=== PATIENT | male | born 1945 | race Caucasian/White ===

== ENCOUNTER 2017-05-02 16:30 | Emergency (ER) | payer MEDICARE, BC ==
[2017-05-02] MEDS ORDERED: HYDROmorphone HCL 1 MG/ML DISP.SYRIN IM ONE (16:55)
[2017-05-02] MEDS ORDERED: KETOROLAC TROMETHAMINE 30 MG/ML VIAL IM ONE (16:56)
[2017-05-02] MEDS ORDERED: KETOROLAC TROMETHAMINE 30 MG/ML VIAL ONE (16:59)
[2017-05-02] MEDS ORDERED: HYDROmorphone HCL 2 MG/ML VIAL ONE (16:59)
[2017-05-02] MEDS ORDERED: ALBUTEROL SULFATE/IPRATROPIUM 3 ML NEBU IH ONE ×2 (17:00→17:07)
--- NOTE | 2017-05-02 17:01 | ERNOTE ---
Trauma/Assault HPI - Narrative Date of Service: 05/02/17 - General Stated Complaint: FALL, LOC Time Seen by Provider: 05/02/17 16:34 Source: patient, family - Immun/Allergies/Home Medications Immunizations: IMMUNIZATION HX Immunizations Up to Date Yes History of Influenza Vaccine Yes Hx Pneumococcal Vaccination Yes Allergies/Adverse Reactions: Allergies No Known Drug Allergies Allergy (Unverified 02/21/12 13:26) Home Medications: HOME MEDICATIONS Albuterol Sulfate [Proventil Hfa] 2 puff IH Q4H PRN 02/05/13 [Last Taken ] Albuterol Sulfate/Ipratropium [Duoneb 2.5-0.5MG/3ML Soln] 3 ml IH QID 02/05/13 [ Last Taken 06/01/14] Allopurinol [Zyloprim (Allopurinol)] 100 mg PO DAILY 02/05/13 [Last Taken ] Aspirin [Aspirin Enteric Coated] 81 mg PO DAILY 02/05/13 [Last Taken 05/30/14] Indomethacin [Indocin Generic] 25 mg PO DAILY 02/05/13 [Last Taken 05/31/14] Lisinopril [Zestril] 40 mg PO BID 02/05/13 [Last Taken 05/31/14] Metoprolol Succinate [Toprol Xl] 12.5 mg PO BID 02/05/13 [Last Taken 06/01/14] Polyethylene Glycol 3350 [Miralax] 17 gm PO DAILY PRN 02/05/13 [Last Taken Unknown] RX: Nitroglycerin 0.4 mg SL Q5MIN PRN 02/05/13 [Last Taken Unknown] RX: Omeprazole 20 mg PO DAILY 02/05/13 [Last Taken 05/31/14] RX: Simvastatin 10 mg PO HS 02/05/13 [Last Taken 05/31/14] Tamsulosin HCl [Flomax] 0.8 mg PO HS 02/05/13 [Last Taken 05/31/14] amLODIPine BESYLATE [Norvasc] 10 mg PO DAILY 02/05/13 [Last Taken 05/31/14] Finasteride [Proscar] 5 mg PO DAILY 05/19/14 [Last Taken 05/31/14] Wheat Dextrin [Benefiber] 1 tbs PO DAILY 02/10/15 [Last Taken Unknown] Acetaminophen with Codeine [Tylenol with Codeine #3 Tablet] 1 each PO Q6H PRN # 20 tab 05/02/17 [Last Taken Unknown] - History of Present Illness Narrative: Patient is a 72-year-old patient male who presents to the emergency room after sustaining a fall. Has a history of COPD and currently on 2 L of oxygen chronically. He reports a witnessed syncopal episode. Currently he was supposed to wear his oxygen all the time but he wasn't wearing at the time of the fall. While taking a shower he fell and hit the right lateral aspect of his chest area on the bathtub. Ring to the emergency room right now complaining of pain of the lateral aspect of the right chest. Location Occurred: Reports: home Pain Location: Reports: chest - right lateral chest area Method of Injury: Reports: fall Associated Symptoms - Trauma: Reports: shortness of breath. Denies: headache, confusion, dizziness, lightheadedness, seizures, slurred speech, trouble walking , vision changes, neck pain, chest pain, abdominal pain, nausea, vomiting, muscle spasms Review of Systems - Review of Systems Constitutional: Present: See HPI EYE: Present: see HPI ENT: Present: See HPI Respiratory: Present: shortness of breath - chronic , wheezing. Absent: cough, orthopnea, stridor Cardiology: Present: chest pain. Absent: palpitations, syncope, edema, claudication Gastrointestinal/Abdominal: Present: See HPI Musculoskeletal: Present: See HPI Skin: Present: See HPI Neurological: Present: See HPI - Patient's Past Medical History Patient History - Medical: Anxiety, Depression, GERD Patient History - Cardiac/Respiratory: Coronary Heart Disease, COPD Patient History - Cancer: Bladder Patient History - Surgical Procedures: Colonoscopy, Coronary Bypass Surgery, Other Patient History - Other: None - Social History Living Situations: spouse Abuse History: No History of abuse Psych History: Hx of Anxiety, Hx of Depression Smoking Status: Former smoker Alcohol Use: none Drug Use: none - Immunizations Immunizations Up to Date: Yes Hx Pneumococcal Vaccination: Yes History of Influenza Vaccine: Yes Physical Exam - Physical Exam General Appearance: Present: wd/wn, mild distress Head Exam: Present: normal inspection, no evidence of injury Eye Exam: Normal inspection: bilateral, PERRL: bilateral, EOMI: bilateral Ears, Nose, Throat: Present: normal ENT inspection, normal except - Neck: Present: normal inspection, nontender, supple, full range of motion Respiratory: Present: no respiratory distress, normal breath sounds, chest tenderness - he appears to be exquisitely tender on the right aspect of the lateral chest area., expiration (prolonged), wheezing Cardiovascular/Chest: Present: regular rate, rhythm, no murmur, normal peripheral pulses Gastrointestinal/Abdominal: Present: normal bowel sounds, nontender, nondistended, no organomegaly Extremity Exam: Present: normal inspection Neurological Exam: Present: alert, oriented, normal mood/affect, no motor/ sensory deficits Skin Exam: Present: normal color, warm/dry Lymphatic Exam: Present: no adenopathy ED Progress - Vital Signs Patient's Vital Signs:: I have reviewed the patient's vital signs. Vital Signs: Vital Signs 05/02/17 16:47 Temperature 36.7 C Pulse Rate 52 L Respiratory 13 Rate Blood Pressure 144/58 O2 Sat by Pulse 99 Oximetry - X-Ray X-Ray #1 X-Ray: right rib series Interpretation: Reviewed by me X-ray Comments: He appears to have a nondisplaced fracture of the anterior ninth rib with no evidence of complications. - Progress/Reassessment Chief Complaint: Fall Departure Clinical Impression: Closed rib fracture Qualifiers: Encounter type: initial encounter Rib fracture type: single rib Laterality: right Qualified Code(s): S22.31XA - Fracture of one rib, right side, initial encounter for closed fracture - Departure Disposition: Home self-care Condition: Stable Instructions: Rib Fracture, [id number] Print Language: Irish Additional Instructions: Patient encouraged to follow up with his primary care physician in 7-10 days. Referrals: Linnea Roque MD [Primary Care Provider] - Prescriptions: Acetaminophen with Codeine [Tylenol with Codeine #3 Tablet] 1 each PO Q6H PRN # 20 tab PRN Reason: Muscle Pain Critical Care Time - Critical Care Critical Time Spent:: No
[2017-05-02 18:25] VITALS: BP 123/65
== END 2017-05-02 18:25 | disposition home or self-care (01) ==
LOC: ER 16:30
DX: S22.31XA Fracture of one rib, right side, initial encounter for closed fracture (principal); W18.2XXA Fall in (into) shower or empty bathtub, initial encounter; Y93.E1 Activity, personal bathing and showering; Y92.002 Bathroom of unspecified non-institutional (private) residence as the place of occurrence of the external cause; Z87.891 Personal history of nicotine dependence; Z85.51 Personal history of malignant neoplasm of bladder

== ENCOUNTER 2018-08-13 16:16 | Inpatient (IN) ==
[2018-08-13] MEDS ORDERED: DILTIAZEM HCL 5 MG/ML VIAL IV ONE (16:39)
--- NOTE | 2018-08-13 16:43 | ERNOTE ---
Lower Extremity HPI - General Lower Extremities Pain: leg: bilateral, foot: bilateral - Edema Time Seen by Provider: 08/13/18 16:24 Source: patient Exam Limitations: no limitations - Immun/Allergies/Home Medications Immunizations: IMMUNIZATION HX Immunizations Up to Date Yes History of Influenza Vaccine Yes Hx Pneumococcal Vaccination Yes Allergies/Adverse Reactions: Allergies Allergy/AdvReac Type Severity Reaction Status Date / Time lisinopril Allergy Mild cough Verified 08/13/18 16:26 Home Medications: HOME MEDICATIONS Aspirin [Aspirin Enteric Coated] 81 mg PO DAILY 02/05/13 [Last Taken 05/30/14] Wheat Dextrin [Benefiber] 1 tbs PO DAILY 05/19/14 [Last Taken Unknown] acetaminophen 300 mg-codeine 30 mg tablet 1 tab PO Q6H PRN #20 tab 11/23/17 [Last Taken Unknown] allopurinol 100 mg tablet 100 mg PO DAILY #90 tab 11/23/17 [Last Taken Unknown] amlodipine 10 mg tablet 10 mg PO DAILY #90 tab 11/23/17 [Last Taken Unknown] atorvastatin 40 mg tablet 40 mg PO HS #90 tab 11/23/17 [Last Taken Unknown] finasteride 5 mg tablet 5 mg PO DAILY #90 tab 11/23/17 [Last Taken Unknown] nitroglycerin 0.4 mg sublingual tablet 0.4 mg SL Q5MIN PRN #25 tab 11/23/17 [Last Taken Unknown] omeprazole 20 mg tablet,delayed release 20 mg PO DAILY #90 tab 11/23/17 [Last Taken Unknown] polyethylene glycol 3350 17 gram/dose oral powder 17 g PO DAILY PRN #510 g 11/23/17 [Last Taken Unknown] losartan 100 mg tablet 100 mg PO DAILY #90 tab 06/18/18 [Last Taken Unknown] sertraline 100 mg tablet 100 mg PO DAILY #90 tab 06/18/18 [Last Taken Unknown] ipratropium-albuterol 0.5 mg-3 mg(2.5 mg base)/3 mL nebulization soln 3 ml IH QID #180 ml 06/25/18 [Last Taken Unknown] albuterol sulfate HFA 90 mcg/actuation aerosol inhaler 2 puff IH Q4H PRN #18 g 06/26/18 [Last Taken Unknown] PowerWheelchair See Dose Instructions .ROUTE .MEDSUPPLY #1 ea 07/17/18 [Last Taken Unknown] electric wheelchair 0 .ROUTE .MEDSUPPLY #1 ea 07/17/18 [Last Taken Unknown] tamsulosin 0.4 mg capsule 0.4 mg PO DAILY #30 cap 07/17/18 [Last Taken Unknown] - History of Present Illness Narrative: Patient presents with approximately 1 week of lower extremity edema and shortness of breath. He rates his symptoms as at least moderate in severity. Occurred: other - Over the past week Location of Incident: home Loss of Consciousness: Reports: no loss of consciousness Other Injuries: Reports: none Review of Systems - Review of Systems Constitutional: Present: See HPI EYE: Present: no symptoms reported ENT: Present: no symptoms reported Respiratory: Present: See HPI Cardiology: Present: See HPI Gastrointestinal/Abdominal: Present: no symptoms reported Genitourinary: Present: no symptoms reported Musculoskeletal: Present: no symptoms reported Skin: Present: no symptoms reported Neurological: Present: no symptoms reported Endocrine: Present: no symptoms reported Hematologic/Lymphatic: Present: no symptoms reported Psych: Present: no symptoms reported Medical History (Updated 08/13/18 @ 16:44 by William Quick DO) Prostatism (Chronic) Chronic pain (Chronic) Anemia (Chronic) Hyperlipidemia (Chronic) Hypertension (Chronic) COPD with asthma (Chronic) Anxiety and depression B12 deficiency Bladder neoplasm Onset Date: ~2011 BPH with obstruction 2001, chronis prostatitis COPD (chronic obstructive pulmonary disease) Onset Date: 1995 [place], followed by CABG x1, VALDERRAMA to LAD Chronic GERD Onset Date: 1994 Hiatal Hernia Coronary artery disease Onset Date: Unknown Diverticulosis Onset Date: Unknown Hyperlipidemia due to dietary fat intake Onset Date: 1995 Hypertension Onset Date: 1975 Surgical History: Surgical History (Updated 11/05/17 @ 12:39 by Giovana Worley CMA) History of biopsy of bladder Onset Date: 08/02/11 Hx of colonoscopy 2000 Diverticulosis of sigmoid, hyperplastic polyps, 06/01/2014 - moderate to severe sigmoid diverticulosis. Recheck in 10 years Hx of coronary artery bypass graft Onset Date: 1995 CABG x1; VALDERRAMA to the LAD Hx of cystoscopy 11/17/2011 Faith, 08/02/2011 Lisa, 06/29/2012 Faith, 11/29/2012 Faith, 02/07/2013 Faith, 01/16/2017 Faith Family History: Family History (Last Reviewed 07/16/18 @ 15:15 by Rocio Shane LPN) Brother , (3) 2 in there 60s from [place], 1 had lung CA No problems noted. Father , at age 70, kidney CA No problems noted. Mother , at age 57 from CVA No problems noted. Sister , in 70s with breathing problems, 1 A&W, 2 heart issues No problems noted. Social History: Preferred Language Nepalese Smoking Status Former smoker Have you smoked in the past 12 No months Abuse History No History of abuse Psych History Hx of Anxiety,Hx of Depression Alcohol Use none Drug Use none (Last Updated 07/17/18 @ 08:56 by Krystian Galvan DO) No Social History Section defined Physical Exam - Physical Exam General Appearance: Present: wd/wn, alert, mild distress Head Exam: Present: normal inspection, no evidence of injury Eye Exam: Normal inspection: bilateral, PERRL: bilateral Ears, Nose, Throat: Present: normal ENT inspection, H, normal pharynx Neck: Present: normal inspection, nontender Respiratory: Present: no accessory muscle use, chest nontender, decreased breath sounds, other - Crackles in the bases right greater than left Cardiovascular/Chest: Present: no murmur, normal peripheral pulses, tachycardia, irregularly irregular Gastrointestinal/Abdominal: Present: normal bowel sounds, nontender, nondistended, soft, no organomegaly Rectal Exam: Present: deferred Back Exam: Present: normal inspection, normal range of motion Extremity Exam: Present: normal inspection, non-tender, normal range of motion, extremity edema - Bilateral Neurological Exam: Present: alert, oriented, normal mood/affect Skin Exam: Present: normal color, warm/dry Lymphatic Exam: Present: no adenopathy Progress - Results and Orders Patient's Lab Results:: I have reviewed the patient's lab results. - Vital Signs Patient's Vital Signs:: I have reviewed the patient's vital signs. Vital Signs: Vital Signs 08/13/18 16:23 Pulse Rate 132 H Respiratory Rate 20 Blood Pressure 135/88 O2 Sat by Pulse Oximetry 98 - EKG EKG #1 EKG: atrial fibrillation EKG read: Reviewed by me - X-Ray X-Ray #1 X-Ray: chest Interpretation: Reviewed by me - Progress/Reassessment Chief Complaint: Lower Extremity Pain/ Injury Plan - Plan Plan: Patient be admitted to the ICU on a Cardizem drip. We have given Lovenox subcu and we have also started Coumadin 10 mg orally. Departure Clinical Impression: Atrial fibrillation with rapid ventricular response CHF (congestive heart failure) Qualifiers: Heart failure type: unspecified Heart failure chronicity: acute Qualified Code(s): I50.9 - Heart failure, unspecified COPD (chronic obstructive pulmonary disease) Qualifiers: COPD type: unspecified COPD Qualified Code(s): J44.9 - Chronic obstructive pulmonary disease, unspecified - Departure Disposition: Still a patient Condition: Critical Referrals: Krystian Galvan DO [Primary Care Provider] - Critical Care Note - Critical Care Note Total Time (mins): 45 Comments: Patient be admitted to the ICU we had to give Cardizem both as a bolus and as a drip here in the emergency department. As he was in CHF we also gave 80 mg of Lasix IV push.
[2018-08-13 16:47] LABS: Hematocrit 32.8 % (42.0-52.0); Mean Cell Volume 92.1 fl (78-100); Mean Corpuscular Hemoglobin 28.1 pg (27-31); Mean Corpuscular Hgb Conc 30.5 g/dl (32-36); Mean Platelet Volume 9.8 fl (8-11.3); Neutrophil # 5.5 K/mm3 (1.3-6.0); Neutrophil % 69.7 % (42-75.0); Platelet Count 278 K/mm3 (150-450); Red Blood Count 3.56 M/mm3 (4.7-6.0); Red Cell Distribution Width 15.2 % (11.5-14.0); White Blood Count 7.9 K/mm3 (4.0-10.5)
[2018-08-13 16:58] LABS: INR 1.17 INR (0.92-1.08); Partial Thrombolplastin Time 28.9 Seconds (24-32); Prothrombin Time (Patient) 11.5 Seconds (9.1-10.7)
[2018-08-13 17:07] LABS: Albumin * 2.8 gm/dl (3.4-5.0); Anion Gap 11.1 mmol/L (6.8-13.8); BUN/Creatinine Ratio 11.5 (9.0-21.6); Bilirubin, Total 0.5 mg/dL (0.0-1.1); Ca. Corrected For Albumin 9.8 mg/dL (8.4-10.2); Calcium * 9.2 mg/dL (7.9-10.9); Carbon Dioxide 28.8 mmol/L (24-32.6); Magnesium 2.1 mg/dL (1.2-2.8); Potassium 3.9 mmol/L (3.4-4.6); Total Protein 6.8 gm/dL (6.2-8.2); Troponin I 0.031 ng/mL (0.00-0.10)
[2018-08-13] MEDS ORDERED: ENOXAPARIN SODIUM 100 MG/ML SYRG SC ONE (17:30)
[2018-08-13] MEDS ORDERED: NORMAL SALINE 1,000 ML IV ONE (17:32)
[2018-08-13] MEDS ORDERED: FUROSEMIDE 10 MG/ML VIAL IV ONE (17:32)
[2018-08-13] MEDS: DILTIAZEM HCL 125 MG in DEXTROSE 5 % IN WATER 100 ML IV PRN ×2 (17:33)
[2018-08-13] MEDS ORDERED: WARFARIN SODIUM 10 MG TABLET PO ONE (18:00)
--- NOTE | 2018-08-13 18:46 | HP ---
Chief Complaint - Chief Complaint Date of Service: 08/13/18 Time of Service: 18:10 Chief Complaint: Bilateral lower extremity edema History of Present Illness: 73-year-old male with a past medical history of anxiety and depression, anemia, COPD on home oxygen (3 L), CAD, hyperlipidemia, hypertension, GERD, bladder neoplasm, BPH, and chronic pain presents with complaints of bilateral lower extremity edema. He states that his symptoms began about 5 days ago. He states he does not typically have swelling in his legs. Symptoms were associated with worsening of his baseline shortness of breath. He presented to the emergency department and was found to have new onset atrial fib with RVR. He was started on a Cardizem drip. He was given a dose of Lovenox in the ER. Medical History (Updated 08/14/18 @ 10:45 by Lelo Cerrato MD) Prostatism (Chronic) Chronic pain (Chronic) Anemia (Chronic) Hyperlipidemia (Chronic) Hypertension (Chronic) COPD with asthma (Chronic) Anxiety and depression B12 deficiency Bladder neoplasm Onset Date: ~2011 BPH with obstruction 2001, chronis prostatitis COPD (chronic obstructive pulmonary disease) Onset Date: 1995 [place], followed by CABG x1, VALDERRAMA to LAD Chronic GERD Onset Date: 1994 Hiatal Hernia Coronary artery disease Onset Date: Unknown Diverticulosis Onset Date: Unknown Hyperlipidemia due to dietary fat intake Onset Date: 1995 Hypertension Onset Date: 1975 Surgical History: Surgical History (Updated 08/13/18 @ 18:46 by Lelo Cerrato MD) History of biopsy of bladder Onset Date: 08/02/11 Hx of colonoscopy 2000 Diverticulosis of sigmoid, hyperplastic polyps, 06/01/2014 - moderate to severe sigmoid diverticulosis. Recheck in 10 years Hx of coronary artery bypass graft Onset Date: 1995 CABG x1; VALDERRAMA to the LAD Hx of cystoscopy 11/17/2011 Faith, 08/02/2011 Lisa, 06/29/2012 Faith, 11/29/2012 Faith, 02/07/2013 Faith, 01/16/2017 Faith Family History: Family History (Last Reviewed 07/16/18 @ 15:15 by Rocio Shane LPN) Brother , (3) 2 in there 60s from [place], 1 had lung CA No problems noted. Father , at age 70, kidney CA No problems noted. Mother , at age 57 from CVA No problems noted. Sister , in 70s with breathing problems, 1 A&W, 2 heart issues No problems noted. Social History: Preferred Language Maltese Smoking Status Former smoker Have you smoked in the past 12 No months Abuse History No History of abuse Psych History Hx of Anxiety,Hx of Depression Alcohol Use none Drug Use none (Last Updated 07/17/18 @ 08:56 by Krystian Galvan DO) No Social History Section defined Review Of Systems (GEN) - Review of Systems Generalized/Overall Review: Absent: Fever EENTM: Absent: Ear Pain Respiratory: Present: Shortness of Breath Cardiac: Present: Edema. Absent: Chest Pain, Palpitations Abdominal: Absent: Abdominal Pain Genitourinary: Present: Frequency Misc: All systems neg except as marked Immunizations: IMMUNIZATION HX Immunizations Up to Date Yes History of Influenza Vaccine Yes Hx Pneumococcal Vaccination Yes Allergies/Adverse Reactions: Allergies Allergy/AdvReac Type Severity Reaction Status Date / Time lisinopril Allergy Mild cough Verified 08/13/18 16:26 Home Medications: HOME MEDICATIONS Aspirin [Aspirin Enteric Coated] 81 mg PO DAILY 02/05/13 [Last Taken 05/30/14] allopurinol 100 mg tablet 100 mg PO DAILY #90 tab 11/23/17 [Last Taken Unknown] amlodipine 10 mg tablet 10 mg PO DAILY #90 tab 11/23/17 [Last Taken Unknown] atorvastatin 40 mg tablet 40 mg PO HS #90 tab 11/23/17 [Last Taken Unknown] finasteride 5 mg tablet 5 mg PO DAILY #90 tab 11/23/17 [Last Taken Unknown] nitroglycerin 0.4 mg sublingual tablet 0.4 mg SL Q5MIN PRN #25 tab 11/23/17 [Last Taken Unknown] omeprazole 20 mg tablet,delayed release 20 mg PO DAILY #90 tab 11/23/17 [Last Taken Unknown] polyethylene glycol 3350 17 gram/dose oral powder 17 g PO DAILY PRN #510 g 11/23/17 [Last Taken Unknown] losartan 100 mg tablet 100 mg PO DAILY #90 tab 06/18/18 [Last Taken Unknown] sertraline 100 mg tablet 100 mg PO DAILY #90 tab 06/18/18 [Last Taken Unknown] ipratropium-albuterol 0.5 mg-3 mg(2.5 mg base)/3 mL nebulization soln 3 ml IH QID #180 ml 06/25/18 [Last Taken Unknown] albuterol sulfate HFA 90 mcg/actuation aerosol inhaler 2 puff IH Q4H PRN #18 g 06/26/18 [Last Taken Unknown] PowerWheelchair See Dose Instructions .ROUTE .MEDSUPPLY #1 ea 07/17/18 [Last Taken Unknown] electric wheelchair 0 .ROUTE .MEDSUPPLY #1 ea 07/17/18 [Last Taken Unknown] tamsulosin 0.4 mg capsule 0.4 mg PO DAILY #30 cap 07/17/18 [Last Taken Unknown] Cholecalciferol (Vitamin D3) [Vitamin D] 2,000 unit PO DAILY 08/13/18 [Last Taken Unknown] Cyanocobalamin (Vitamin B-12) [Vitamin B12] 2,500 mcg PO DAILY 08/13/18 [Last Taken Unknown] Exam - Exam Vital Signs: Vital Signs - Last Taken Pulse 138 H 08/13/18 18:36 Resp 28 H 08/13/18 18:36 BP 127/71 08/13/18 18:36 Pulse Ox 96 08/13/18 18:16 Constitutional: Present: Alert, Cooperative, Well developed, Well nourished, No distress ENT Exam: Present: hearing grossly normal Eye Exam: bilateral eye: normal inspection, PERRL Neck: Present: non-tender, supple, trachea midline. Absent: lymphadenopathy (R), lymphadenopathy (L) Back Exam: Present: normal inspection, no CVA tenderness, no vertebral tenderness Respiratory: Present: no respiratory distress, no accessory muscle use - Expiratory, wheezing. Absent: crackles, rhonchi Cardiovascular/Chest: Present: normal peripheral pulses, no chest tenderness, no edema, no murmur, irregularly irregular Peripheral Pulses: dorsalis-pedis (R): 1+, dorsalis-pedis (L): 1+ Abdomen: Present: Normal bowel sounds, soft, nontender Extremity: Present: pedal edema - 2+ pitting Skin Exam: Present: normal color, warm/dry Neurologic: Present: alert, normal mood/affect Appearance: Present: appropriate appearance, appropriate insight Eye contact: Present: cooperative Thoughts: Present: normal thought pattern, normal mood /affect Diagnostic Studies: Abnormal Lab Results 08/13/18 08/13/18 08/13/18 Range/Units 16:41 16:41 16:41 RBC 3.56 L (4.7-6.0) M/mm3 Hgb 10.0 L (13.5-18.0) gm/dL Hct 32.8 L (42.0-52.0) % MCHC 30.5 L (32-36) g/dl RDW 15.2 H (11.5-14.0) % Lymphocytes % 16.1 L (20-51) % Monocytes % 9.6 H (0.0-9) % Eosinophils % 3.5 H (0.0-3.0) % Lymphocytes # 1.27 L (1.5-3.5) k/mm3 PT 11.5 H (9.1-10.7) Seconds INR (Anticoag Therapy) 1.17 H (0.92-1.08) INR Est GFR (Non-Af Amer) 57 L (60-130) mL/min Random Glucose 118 H (70-110) mg/dL ALT 16 L (19-67) U/L B-Natriuretic Peptide 3159 H (5-350) pg/mL Albumin 2.8 L (3.4-5.0) gm/dl Laboratory Results WBC 7.9 K/mm3 (4.0-10.5) 08/13/18 16:41 RBC 3.56 M/mm3 (4.7-6.0) L 08/13/18 16:41 Hgb 10.0 gm/dL (13.5-18.0) L 08/13/18 16:41 Hct 32.8 % (42.0-52.0) L 08/13/18 16:41 MCV 92.1 fl (78-100) 08/13/18 16:41 MCH 28.1 pg (27-31) 08/13/18 16:41 MCHC 30.5 g/dl (32-36) L 08/13/18 16:41 RDW 15.2 % (11.5-14.0) H 08/13/18 16:41 Plt Count 278 K/mm3 (150-450) 08/13/18 16:41 MPV 9.8 fl (8-11.3) 08/13/18 16:41 Immature Gran % (Auto) 0.30 % (0.001-0.429) 08/13/18 16:41 Immature Gran # (Auto) 0.02 K/mm3 (0.000-0.0310) 08/13/18 16:41 69.7 % (42-75.0) 08/13/18 16:41 16.1 % (20-51) L 08/13/18 16:41 9.6 % (0.0-9) H 08/13/18 16:41 3.5 % (0.0-3.0) H 08/13/18 16:41 0.8 % (0.0-1.0) 08/13/18 16:41 Nucleated RBC % 0.0 k/mm3 (0-1) 08/13/18 16:41 5.5 K/mm3 (1.3-6.0) 08/13/18 16:41 1.27 k/mm3 (1.5-3.5) L 08/13/18 16:41 0.8 k/mm3 (0.0-1.0) 08/13/18 16:41 0.3 k/mm3 (0.0-0.7) 08/13/18 16:41 Absolute Basophils 0.1 k/mm3 (0.0-0.1) 08/13/18 16:41 PT 11.5 Seconds (9.1-10.7) H 08/13/18 16:41 INR (Anticoag Therapy) 1.17 INR (0.92-1.08) H 08/13/18 16:41 PTT (Pedro Luis) 28.9 Seconds (24-32) 08/13/18 16:41 Sodium 138 mmol/L (132-142) 08/13/18 16:41 138 mmol/L (130-142) 08/13/18 16:41 Potassium 3.9 mmol/L (3.4-4.6) 08/13/18 16:41 Chloride 102 mmol/L (97-106) 08/13/18 16:41 Carbon Dioxide 28.8 mmol/L (24-32.6) 08/13/18 16:41 11.1 mmol/L (6.8-13.8) 08/13/18 16:41 BUN 15 mg/dL (6-23) 08/13/18 16:41 1.30 mg/dL (0.4-1.4) 08/13/18 16:41 Est GFR (Non-Af Amer) 57 mL/min (60-130) L 08/13/18 16:41 11.5 (9.0-21.6) 08/13/18 16:41 118 mg/dL (70-110) H 08/13/18 16:41 Calcium 9.2 mg/dL (7.9-10.9) 08/13/18 16:41 Calcium Adj for Albumin 9.8 mg/dL (8.4-10.2) 08/13/18 16:41 Magnesium 2.1 mg/dL (1.2-2.8) 08/13/18 16:41 0.5 mg/dL (0.0-1.1) 08/13/18 16:41 AST 17 U/L (0-48) 08/13/18 16:41 ALT 16 U/L (19-67) L 08/13/18 16:41 131 U/L (50-170) 08/13/18 16:41 0.031 ng/mL (0.00-0.10) 08/13/18 16:41 B-Natriuretic Peptide 3159 pg/mL (5-350) H 08/13/18 16:41 6.8 gm/dL (6.2-8.2) 08/13/18 16:41 2.8 gm/dl (3.4-5.0) L 08/13/18 16:41 Assessment/Plan - Narrative Narrative: 73-year-old male with a past medical history of anxiety and depression, anemia, COPD on home oxygen (3 L), CAD, hyperlipidemia, hypertension, GERD, bladder neoplasm, BPH, and chronic pain presents with complaints of bilateral lower extremity edema. He states that his symptoms began about 5 days ago. He states he does not typically have swelling in his legs. Symptoms were associated with worsening of his baseline shortness of breath. He presented to the emergency department and was found to have new onset atrial fib with RVR. He was started on a Cardizem drip. Is was given a dose of Lovenox in the ER. He will be admitted to the SCU for rate control. - Assessment/Plan (1) Atrial fibrillation with rapid ventricular response Problem: Acute (2) CHF (congestive heart failure) Problem: Suspected Qualifiers: Heart failure type: unspecified Heart failure chronicity: acute Qualified Code(s): I50.9 - Heart failure, unspecified (3) COPD (chronic obstructive pulmonary disease) Problem: Chronic Qualifiers: COPD type: unspecified COPD Qualified Code(s): J44.9 - Chronic obstructive pulmonary disease, unspecified (4) Hypertension Problem: Chronic Qualifiers: Hypertension type: essential hypertension Qualified Code(s): I10 - Essential (primary) hypertension
[2018-08-13] MEDS ORDERED: POLYETHYLENE GLYCOL 3350 119 GM BTL PO PRN (18:49)
[2018-08-13] MEDS ORDERED: NITROGLYCERIN 0.4 MG/TAB BTL SL PRN (18:49)
[2018-08-13] MEDS ORDERED: ALBUTEROL SULFATE 200 PUFF INHALER IH PRN (18:49)
[2018-08-13] MEDS: ALBUTEROL SULFATE/IPRATROPIUM 3 ML NEBU IH SCH (21:07)
[2018-08-13] MEDS: ROSUVASTATIN CALCIUM 20 MG TABLET PO SCH (21:07)
[2018-08-14] MEDS: DILTIAZEM HCL 125 MG in DEXTROSE 5 % IN WATER 100 ML IV PRN ×4 (02:31→09:30)
[2018-08-14] MEDS: ALBUTEROL SULFATE/IPRATROPIUM 3 ML NEBU IH SCH ×4 (06:32→19:37)
[2018-08-14] MEDS: PANTOPRAZOLE SODIUM 20 MG TABLET.DR PO SCH (06:59)
[2018-08-14] MEDS ORDERED: TAMSULOSIN HCL 0.4 MG CAP.SR.24H PO SCH (09:00)
[2018-08-14] MEDS ORDERED: amLODIPine BESYLATE 10 MG TABLET PO SCH (09:00)
[2018-08-14] MEDS ORDERED: FUROSEMIDE 10 MG/ML VIAL IV ONE (09:06)
[2018-08-14] MEDS: ALLOPURINOL 100 MG TABLET PO SCH (09:24)
[2018-08-14] MEDS: ASPIRIN 81 MG TABLET.DR PO SCH (09:24)
[2018-08-14] MEDS: SERTRALINE HCL 100 MG TABLET PO SCH (09:25)
[2018-08-14] MEDS: LOSARTAN POTASSIUM 50 MG TABLET PO SCH (09:25)
[2018-08-14] MEDS: FINASTERIDE 5 MG TABLET PO SCH (09:25)
[2018-08-14 09:38] LABS: Anion Gap 11.7 mmol/L (6.8-13.8); BUN/Creatinine Ratio 11.5 (9.0-21.6); Calcium * 8.8 mg/dL (7.9-10.9); Carbon Dioxide 30.2 mmol/L (24-32.6); Estimated Creat Clear 42.9; Potassium 3.9 mmol/L (3.4-4.6)
--- NOTE | 2018-08-14 10:45 | PN ---
Subjective - Date and Time Seen Date: 08/14/18 Time: 10:00 Subjective Narrative: He continues to complain of shortness of breath but states this is near his baseline. He states that overall he does feel better. He denies palpitations, chest pain or abdominal pain. Objective - Review of Systems Generalized/Overall Review: Denies: Chills, Fever EENTM: Denies: Eye Pain, Ear Pain Respiratory: Reports: Shortness of Breath Cardiac: Denies: Chest Pain Abdominal: Denies: Abdominal Pain Genitourinary Symptoms: Reports: Frequency Misc: All systems neg except as marked - Vitals Vitals: Last Vital Signs Temp 36.7 C 08/14/18 10:00 Pulse 130 H 08/14/18 10:12 Resp 28 H 08/14/18 10:12 BP 106/89 08/14/18 10:00 Pulse Ox 98 08/14/18 10:12 - Abnormal Lab Findings Abnormal Lab Findings: Abnormal Lab Results 08/13/18 08/13/18 08/13/18 Range/Units 16:41 16:41 16:41 RBC 3.56 L (4.7-6.0) M/mm3 Hgb 10.0 L (13.5-18.0) gm/dL Hct 32.8 L (42.0-52.0) % MCHC 30.5 L (32-36) g/dl RDW 15.2 H (11.5-14.0) % Lymphocytes % 16.1 L (20-51) % Monocytes % 9.6 H (0.0-9) % Eosinophils % 3.5 H (0.0-3.0) % Lymphocytes # 1.27 L (1.5-3.5) k/mm3 PT 11.5 H (9.1-10.7) Seconds INR (Anticoag Therapy) 1.17 H (0.92-1.08) INR Creatinine (0.4-1.4) mg/dL Est GFR (Non-Af Amer) 57 L (60-130) mL/min Random Glucose 118 H (70-110) mg/dL ALT 16 L (19-67) U/L B-Natriuretic Peptide 3159 H (5-350) pg/mL Albumin 2.8 L (3.4-5.0) gm/dl 08/14/18 Range/Units 09:20 RBC (4.7-6.0) M/mm3 Hgb (13.5-18.0) gm/dL Hct (42.0-52.0) % MCHC (32-36) g/dl RDW (11.5-14.0) % Lymphocytes % (20-51) % Monocytes % (0.0-9) % Eosinophils % (0.0-3.0) % Lymphocytes # (1.5-3.5) k/mm3 PT (9.1-10.7) Seconds INR (Anticoag Therapy) (0.92-1.08) INR Creatinine 1.56 H (0.4-1.4) mg/dL Est GFR (Non-Af Amer) 46 L (60-130) mL/min Random Glucose 126 H (70-110) mg/dL ALT (19-67) U/L B-Natriuretic Peptide (5-350) pg/mL Albumin (3.4-5.0) gm/dl - Exam Constitutional: Present: Alert, Cooperative, Well developed, Well nourished, No distress ENT Exam: Present: hearing grossly normal Neck: Present: non-tender, supple, trachea midline Respiratory: Present: wheezing - Expiratory bilateral Cardiovascular/Chest: Present: normal peripheral pulses, no murmur, tachycardia, irregularly irregular Abdomen: Present: Normal bowel sounds, soft, nontender Extremity: Present: pedal edema - 2+ bilateral Skin Exam: Present: normal color, warm/dry Neurologic: Present: normal mood/affect Appearance: Present: appropriate appearance, appropriate insight Eye contact: Present: cooperative Thoughts: Present: normal mood /affect Assessment/Plan Plan Narrative: 73-year-old male with a past medical history of anxiety and depression, anemia, COPD on home oxygen (3 L), CAD, hyperlipidemia, hypertension, GERD, bladder neoplasm, BPH, and chronic pain presents with complaints of bilateral lower extremity edema. He states that his symptoms began about 5 days ago. He states he does not typically have swelling in his legs. Symptoms were associated with worsening of his baseline shortness of breath. He presented to the emergency department and was found to have new onset atrial fib with RVR. He was started on a Cardizem drip. He was given a dose of Lovenox in the ER. - Problems/Diagnosis (1) Atrial fibrillation with rapid ventricular response Problem: Acute Narrative: Rate has improved to 110-120s. She has been on Cardizem 15 mg/h for the past 12 hours. This translates to 360 mg of Cardizem and a 24-hour time frame I will start him on 240 mg of oral Cardizem in an attempt to get him off of the drip. If his heart rate stabilizes off the drip I will transition him out of ICU to the floor and continue observation for 1 more day. Continue anticoagulation with warfarin 5 mg daily with an INR in the morning. (2) CHF (congestive heart failure) Problem: Suspected Qualifiers: Heart failure type: unspecified Heart failure chronicity: acute Qualified Code(s): I50.9 - Heart failure, unspecified Narrative: Likely secondary to the tachycardia. Continue with Lasix 20 mg daily. (3) COPD (chronic obstructive pulmonary disease) Problem: Chronic Qualifiers: COPD type: unspecified COPD Qualified Code(s): J44.9 - Chronic obstructive pulmonary disease, unspecified Narrative: Continue with duo nebs and albuterol. (4) Hypertension Problem: Chronic Qualifiers: Hypertension type: essential hypertension Qualified Code(s): I10 - Essential (primary) hypertension Narrative: Stable on diltiazem and home meds. (5) Bilateral lower extremity edema Problem: Acute Narrative: Continue with Lasix 20 mg daily.
[2018-08-14] MEDS: DILTIAZEM HCL 240 MG CAP.SR.24H PO SCH (10:48)
[2018-08-14] MEDS: ALBUTEROL SULFATE 2.5 MG/0.5 ML VIAL.NEB IH PRN (14:17)
[2018-08-14] MEDS: WARFARIN SODIUM 5 MG TABLET PO SCH (17:13)
[2018-08-14] MEDS: TAMSULOSIN HCL 0.4 MG CAP.SR.24H PO SCH (17:13)
[2018-08-14] MEDS: ROSUVASTATIN CALCIUM 20 MG TABLET PO SCH (20:23)
[2018-08-15] MEDS: ALBUTEROL SULFATE 2.5 MG/0.5 ML VIAL.NEB IH PRN (01:23)
[2018-08-15 05:56] LABS: Hemoglobin 8.8 gm/dL (13.5-18.0); Mean Cell Volume 90.9 fl (78-100); Mean Corpuscular Hemoglobin 27.6 pg (27-31); Mean Corpuscular Hgb Conc 30.3 g/dl (32-36); Mean Platelet Volume 10.4 fl (8-11.3); Neutrophil # 6.8 K/mm3 (1.3-6.0); Neutrophil % 75.9 % (42-75.0); Platelet Count 250 K/mm3 (150-450); Red Blood Count 3.19 M/mm3 (4.7-6.0); Red Cell Distribution Width 15.2 % (11.5-14.0); White Blood Count 8.9 K/mm3 (4.0-10.5)
[2018-08-15 06:04] LABS: Prothrombin Time (Patient) 17.1 Seconds (9.1-10.7)
[2018-08-15 06:14] LABS: Albumin * 2.6 gm/dl (3.4-5.0); Anion Gap 11.5 mmol/L (6.8-13.8); Bilirubin, Total 0.4 mg/dL (0.0-1.1); Ca. Corrected For Albumin 9.6 mg/dL (8.4-10.2); Calcium * 8.8 mg/dL (7.9-10.9); Carbon Dioxide 28.3 mmol/L (24-32.6); Potassium 3.8 mmol/L (3.4-4.6); Total Protein 6.1 gm/dL (6.2-8.2)
[2018-08-15 06:23] LABS: INR 1.77 INR (0.92-1.08)
[2018-08-15] MEDS: ALBUTEROL SULFATE/IPRATROPIUM 3 ML NEBU IH SCH ×4 (06:31→18:22)
[2018-08-15] MEDS: PANTOPRAZOLE SODIUM 20 MG TABLET.DR PO SCH (07:40)
[2018-08-15] MEDS ORDERED: amLODIPine BESYLATE 10 MG TABLET PO SCH (09:00)
[2018-08-15] MEDS: amLODIPine BESYLATE 5 MG TABLET PO SCH (09:55)
[2018-08-15] MEDS: SERTRALINE HCL 100 MG TABLET PO SCH (09:55)
[2018-08-15] MEDS: FINASTERIDE 5 MG TABLET PO SCH (09:56)
[2018-08-15] MEDS: predniSONE 20 MG TABLET PO SCH ×2 (09:56→21:32)
[2018-08-15] MEDS: ALLOPURINOL 100 MG TABLET PO SCH (09:56)
[2018-08-15] MEDS: DILTIAZEM HCL 240 MG CAP.SR.24H PO SCH (09:56)
[2018-08-15] MEDS: LOSARTAN POTASSIUM 50 MG TABLET PO SCH (09:56)
[2018-08-15] MEDS: ASPIRIN 81 MG TABLET.DR PO SCH (09:58)
[2018-08-15] MEDS: FLUTICASONE PROPION/SALMETEROL 14 PUFF DISK.W.DEV IH SCH ×2 (10:00→21:32)
[2018-08-15] MEDS: FUROSEMIDE 10 MG/ML VIAL IV SCH (10:23)
[2018-08-15] MEDS: WARFARIN SODIUM 5 MG TABLET PO SCH (17:30)
[2018-08-15] MEDS: TAMSULOSIN HCL 0.4 MG CAP.SR.24H PO SCH (17:30)
--- NOTE | 2018-08-15 20:45 | PN ---
Subjective - Date and Time Seen Date: 08/15/18 Time: 08:00 Subjective Narrative: On service note Salvador Arreola is a 73-year-old male admitted with shortness of breath, marked edema, and chest tightness. He has been diuresed yesterday and his swelling is diminished some but he still has a lot of leg edema. He was in atrial fibrillation with RVR on admission to the ER. Objective - Review of Systems Generalized/Overall Review: Reports: Weakness, Fatigue EENTM: Reports: No Symptoms Reported Respiratory: Reports: Cough, Shortness of Breath, Orthopnea, Wheezing Cardiac: Reports: No Symptoms Reported Abdominal: Reports: No Symptoms Reported Genitourinary Symptoms: Reports: No Symptoms Reported Musculoskeletal Complaints: Reports: Joint Pain Neurological: Reports: No Symptoms Reported, Tremors, Weakness Skin: Reports: No Symptoms Reported Endocrine: Reports: No Symptoms Reported Misc: All systems neg except as marked - Vitals Vitals: Last Vital Signs Temp 36.7 C 08/15/18 19:31 Pulse 67 08/15/18 19:31 Resp 24 H 08/15/18 19:31 BP 119/48 08/15/18 19:31 Pulse Ox 95 08/15/18 19:31 - Abnormal Lab Findings Abnormal Lab Findings: Abnormal Lab Results 08/15/18 08/15/18 08/15/18 Range/Units 05:53 05:53 05:53 RBC 3.19 L (4.7-6.0) M/mm3 Hgb 8.8 L (13.5-18.0) gm/dL Hct 29.0 L (42.0-52.0) % MCHC 30.3 L (32-36) g/dl RDW 15.2 H (11.5-14.0) % Immature Gran # (Auto) 0.04 H (0.000-0.0310) K/mm3 Neutrophils % 75.9 H (42-75.0) % Lymphocytes % 10.3 L (20-51) % Monocytes % 10.1 H (0.0-9) % Neutrophils # 6.8 H (1.3-6.0) K/mm3 Lymphocytes # 0.92 L (1.5-3.5) k/mm3 PT 17.1 H (9.1-10.7) Seconds INR (Anticoag Therapy) 1.77 H (0.92-1.08) INR Creatinine 1.54 H (0.4-1.4) mg/dL Est GFR (Non-Af Amer) 47 L (60-130) mL/min Random Glucose 123 H (70-110) mg/dL ALT 14 L (19-67) U/L Total Protein 6.1 L (6.2-8.2) gm/dL Albumin 2.6 L (3.4-5.0) gm/dl - EKG/Xray Findings EKG: supravent. tachycardia, atrial fibrillation XRAY: chest Interpretation: Reviewed by me - Exam Constitutional: Present: Alert, Oriented x3, Cooperative, Well developed, Well nourished, Mild distress ENT Exam: Present: normal ENT inspection, hearing grossly normal, pharynx jerad l, TMs normal Neck: Present: non-tender, full range of motion, supple, normal inspection, trachea midline, limited range of motion, lymphadenopathy (R) Breasts: Present: Exam deferred Respiratory: Present: accessory muscle use, rhonchi, wheezing, expiration (prolonged) Cardiovascular/Chest: Present: normal peripheral pulses, regular rate, rhythm - He has converted to normal sinus rhythm through last night on IV Cardizem., no chest tenderness, no edema, no gallop, no JVD, no murmur, no rub Abdomen: Present: Normal bowel sounds, soft, nontender, nondistended, no rebound tenderness, no hepatospenomegaly, no masses /Rectal: Present: Exam deferred Extremity: Present: normal range of motion, non-tender, normal inspection, no pedal edema, no calf tenderness, normal capillary refill Skin Exam: Present: normal color, warm/dry, no cyanosis Lymphatic: Present: no adenopathy Neurologic: Present: 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 Continue diuresis 2. Progress activity as allowed 3. Probable discharge tomorrow morning 4. Repeat lab in the morning - Problems/Diagnosis (1) Atrial fibrillation with rapid ventricular response Problem: Acute (2) CHF (congestive heart failure) Problem: Acute Qualifiers: Heart failure type: combined systolic and diastolic Heart failure chronicity: acute Qualified Code(s): I50.41 - Acute combined systolic (congestive) and diastolic (congestive) heart failure (3) COPD (chronic obstructive pulmonary disease) Problem: Chronic Qualifiers: COPD type: unspecified COPD Qualified Code(s): J44.9 - Chronic obstructive pulmonary disease, unspecified (4) Bilateral lower extremity edema Problem: Acute (5) Anemia Problem: Chronic Qualifiers: Anemia type: iron deficiency Iron deficiency anemia type: unspecified iron deficiency Qualified Code(s): D50.9 - Iron deficiency anemia, unspecified
[2018-08-15] MEDS: ROSUVASTATIN CALCIUM 20 MG TABLET PO SCH (21:32)
[2018-08-16] MEDS: ALBUTEROL SULFATE 2.5 MG/0.5 ML VIAL.NEB IH PRN ×2 (01:26→08:47)
[2018-08-16 05:40] LABS: Hematocrit 28.9 % (42.0-52.0); Hemoglobin 8.9 gm/dL (13.5-18.0); Mean Cell Volume 91.2 fl (78-100); Mean Corpuscular Hemoglobin 28.1 pg (27-31); Mean Corpuscular Hgb Conc 30.8 g/dl (32-36); Mean Platelet Volume 10.6 fl (8-11.3); Neutrophil # 7.2 K/mm3 (1.3-6.0); Neutrophil % 93.2 % (42-75.0); Platelet Count 243 K/mm3 (150-450); Red Blood Count 3.17 M/mm3 (4.7-6.0); Red Cell Distribution Width 15.3 % (11.5-14.0); White Blood Count 7.8 K/mm3 (4.0-10.5)
[2018-08-16 05:45] LABS: Anion Gap 12.3 mmol/L (6.8-13.8); BUN/Creatinine Ratio 13.7 (9.0-21.6); Calcium * 9.1 mg/dL (7.9-10.9); Carbon Dioxide 26.2 mmol/L (24-32.6); Estimated Creat Clear 36.8; Magnesium 1.9 mg/dL (1.2-2.8); Potassium 4.5 mmol/L (3.4-4.6)
[2018-08-16] MEDS: ALBUTEROL SULFATE/IPRATROPIUM 3 ML NEBU IH SCH ×2 (05:59→11:00)
--- NOTE | 2018-08-16 07:57 | DS ---
(1) Atrial fibrillation with rapid ventricular response Problem: Resolved (2) CHF (congestive heart failure) Problem: Acute Qualifiers: Heart failure type: combined systolic and diastolic Heart failure chronicity: acute Qualified Code(s): I50.41 - Acute combined systolic (congestive) and diastolic (congestive) heart failure (3) COPD (chronic obstructive pulmonary disease) Problem: Chronic Qualifiers: COPD type: unspecified COPD Qualified Code(s): J44.9 - Chronic obstructive pulmonary disease, unspecified (4) Bilateral lower extremity edema Problem: Acute (5) Anemia Problem: Chronic Qualifiers: Anemia type: iron deficiency Iron deficiency anemia type: unspecified iron deficiency Qualified Code(s): D50.9 - Iron deficiency anemia, unspecified (6) Hypoalbuminemia Problem: Chronic Description of Stay: Salvador Lee is a 73-year-old obese white male who presented to the emergency room in atrial fibrillation and rapid ventricular response. He had marked edema in his lower extremities and was having shortness of breath. He was started on IV Cardizem and converted back to normal sinus rhythm and has since been changed to oral Cardizem for maintenance. He remains in normal sinus rhythm this morning. He has a chronic anemia. His creatinine yesterday was 1.3 and today is 1.8. His albumin is low at 2.7 g. His hemoglobin is chronically low. It was 10 g on admission and this morning is 8.8 g. He is breathing much easier. He still has some pitting edema below the knees. I suspect this is a combination of his hypoproteinemia, anemia, and dependency. He is also complaining of being shaky yesterday and today. He does not drink alcohol and had quit smoking a long time ago. I suspect the shakiness is just from the aggressive diuresis and weakness. An EKG has been ordered for this morning and is not yet available. Salvador Lee is confined to his home due to congestive heart failure, COPD (advanced) and is oxygen dependent. The need for long term is monitoring of weights and vital signs, medication management, education and oversight. He was recently started on new medications and needs education to help understand his medications. The need for home health care skilled services is directly related to the time spent [id number] with the person regarding his heart disease. Procedures Performed: none Results and Findings: Lab Pending Results 08/13/18 16:41: WBC 7.9, RBC 3.56 L, Hgb 10.0 L, Hct 32.8 L, MCV 92.1, MCH 28.1, MCHC 30.5 L, RDW 15.2 H, Plt Count 278, MPV 9.8, Immature Gran % (Auto) 0.30, Immature Gran # (Auto) 0.02, Neutrophils % 69.7, Lymphocytes % 16.1 L, Monocytes % 9.6 H, Eosinophils % 3.5 H, Basophils % 0.8, Nucleated RBC % 0.0, Neutrophils # 5.5, Lymphocytes # 1.27 L, Monocytes # 0.8, Eosinophils # 0.3, Absolute Basophils 0.1 08/13/18 16:41: Sodium 138, Plasma Sodium 138, Potassium 3.9, Chloride 102, Carbon Dioxide 28.8, Anion Gap 11.1, BUN 15, Creatinine 1.30, Est GFR (Non-Af Amer) 57 L, BUN/Creatinine Ratio 11.5, Random Glucose 118 H, Calcium 9.2, Calcium Adj for Albumin 9.8, Magnesium 2.1, Total Bilirubin 0.5, AST 17, ALT 16 L, Alkaline Phosphatase 131, Troponin I 0.031, B-Natriuretic Peptide 3159 H, Total Protein 6.8, Albumin 2.8 L 08/13/18 16:41: PT 11.5 H, INR (Anticoag Therapy) 1.17 H, PTT (Pedro Luis) 28.9 08/14/18 09:20: Sodium 138, Plasma Sodium 138, Potassium 3.9, Chloride 100, Carbon Dioxide 30.2, Anion Gap 11.7, BUN 18, Creatinine 1.56 H, Est GFR (Non-Af Amer) 46 L, BUN/Creatinine Ratio 11.5, Random Glucose 126 H, Calcium 8.8 08/15/18 05:53: WBC 8.9, RBC 3.19 L, Hgb 8.8 L, Hct 29.0 L, MCV 90.9, MCH 27.6, MCHC 30.3 L, RDW 15.2 H, Plt Count 250, MPV 10.4, Immature Gran % (Auto) 0.40, Immature Gran # (Auto) 0.04 H, Neutrophils % 75.9 H, Lymphocytes % 10.3 L, Monocytes % 10.1 H, Eosinophils % 2.9, Basophils % 0.4, Nucleated RBC % 0.0, Neutrophils # 6.8 H, Lymphocytes # 0.92 L, Monocytes # 0.9, Eosinophils # 0.3, Absolute Basophils 0.0 08/15/18 05:53: Sodium 137, Plasma Sodium 137, Potassium 3.8, Chloride 101, Carbon Dioxide 28.3, Anion Gap 11.5, BUN 20, Creatinine 1.54 H, Est GFR (Non-Af Amer) 47 L, BUN/Creatinine Ratio 13.0, Random Glucose 123 H, Calcium 8.8, Calcium Adj for Albumin 9.6, Total Bilirubin 0.4, AST 16, ALT 14 L, Alkaline Phosphatase 115, Total Protein 6.1 L, Albumin 2.6 L 08/15/18 05:53: PT 17.1 H, INR (Anticoag Therapy) 1.77 H 08/16/18 05:32: WBC 7.8, RBC 3.17 L, Hgb 8.9 L, Hct 28.9 L, MCV 91.2, MCH 28.1, MCHC 30.8 L, RDW 15.3 H, Plt Count 243, MPV 10.6, Immature Gran % (Auto) 0.40, Immature Gran # (Auto) 0.03, Neutrophils % 93.2 H, Lymphocytes % 3.6 L, Monocytes % 2.8, Eosinophils % 0.0, Basophils % 0.0, Nucleated RBC % 0.0, Neutrophils # 7.2 H, Lymphocytes # 0.28 L, Monocytes # 0.2, Eosinophils # 0.0, Absolute Basophils 0.0 08/16/18 05:32: Sodium 131 L, Plasma Sodium 132, Potassium 4.5, Chloride 97, Carbon Dioxide 26.2, Anion Gap 12.3, BUN 25 H, Creatinine 1.82 H, Est GFR (Non- Af Amer) 39 L, BUN/Creatinine Ratio 13.7, Random Glucose 172 H D, Calcium 9.1, Magnesium 1.9 Discharge Location: Home Disposition: Home Health Service Home Health Agency: [facility] Home Health Condition: Fair Face to Face Encounter completed per CMS Guidelines: Yes Discharge Activity: Activity as tolerated Discharge Diet: General/regular food Referrals: Krystian Galvan DO [Primary Care Provider] - Problem Oriented Discharge Instructions to Patient/Family: Heart Failure, [id number], Atrial Fibrillation, [id number] Additional Patient Instructions (free text): [facility] MATTHEW new. Please call report and fax orders upon discharge. 1. Schedule to see me in the office in 2 weeks. 2. Repeat CBC and CMP in 1 week 3. I recommend knee-high support hose to be worn when he is up. He can take them off at bedtime. 4. He is to weigh daily. 5. He is to check vital signs daily with pulse blood pressure and respirations. 6. TCM appointment at discharge. Please call Ana Rosa at [phone]. Follow up appointment with Dr. Galvan on 08/29/18 at 8:30am. Prescriptions (Any new or edited meds): Diltiazem HCl [Cardizem Cd] 240 mg PO Q24H #30 cap.sr.24h Furosemide 20 mg PO DAILY #30 tab Complete Home Medications List: Complete Home Medication List: Aspirin [Aspirin Enteric Coated] 81 mg PO DAILY 02/05/13 allopurinol 100 mg tablet 100 mg PO DAILY #90 tab 11/23/17 atorvastatin 40 mg tablet 40 mg PO HS #90 tab 11/23/17 finasteride 5 mg tablet 5 mg PO DAILY #90 tab 11/23/17 nitroglycerin 0.4 mg sublingual tablet 0.4 mg SL Q5MIN PRN #25 tab 11/23/17 omeprazole 20 mg tablet,delayed release 20 mg PO DAILY #90 tab 11/23/17 polyethylene glycol 3350 17 gram/dose oral powder 17 g PO DAILY PRN #510 g 11/23/17 losartan 100 mg tablet 100 mg PO DAILY #90 tab 06/18/18 sertraline 100 mg tablet 100 mg PO DAILY #90 tab 06/18/18 ipratropium-albuterol 0.5 mg-3 mg(2.5 mg base)/3 mL nebulization soln 3 ml IH QID #180 ml 06/25/18 albuterol sulfate HFA 90 mcg/actuation aerosol inhaler 2 puff IH Q4H PRN #18 g 06/26/18 PowerWheelchair See Dose Instructions .ROUTE .MEDSUPPLY #1 ea 07/17/18 tamsulosin 0.4 mg capsule 0.4 mg PO DAILY #30 cap 07/17/18 Cholecalciferol (Vitamin D3) [Vitamin D3] 2,000 unit PO DAILY 08/13/18 Cyanocobalamin (Vitamin B-12) [Vitamin B12] 2,500 mcg PO DAILY 08/13/18 Diltiazem HCl [Cardizem Cd] 240 mg PO Q24H #30 cap.sr.24h 08/16/18 Fluticasone Propion/Salmeterol [Advair 500-50 Diskus] 1 puff INHALATION BID disk.w.dev 08/16/18 Furosemide 20 mg PO DAILY #30 tab 08/16/18 Amb Orders for Discharge: CBC Time Frame: 1 Week, Location: Laboratory Comprehensive Metabolic Panel Time Frame: 1 Week, Location: Laboratory Magnesium Time Frame: 1 Week, Location: Laboratory
[2018-08-16] MEDS: FLUTICASONE PROPION/SALMETEROL 14 PUFF DISK.W.DEV IH SCH (08:41)
[2018-08-16] MEDS: amLODIPine BESYLATE 5 MG TABLET PO SCH (08:42)
[2018-08-16] MEDS: SERTRALINE HCL 100 MG TABLET PO SCH (08:42)
[2018-08-16] MEDS: PANTOPRAZOLE SODIUM 20 MG TABLET.DR PO SCH (08:42)
[2018-08-16] MEDS: FINASTERIDE 5 MG TABLET PO SCH (08:42)
[2018-08-16] MEDS: LOSARTAN POTASSIUM 50 MG TABLET PO SCH (08:43)
[2018-08-16] MEDS: predniSONE 20 MG TABLET PO SCH (08:43)
[2018-08-16] MEDS: ALLOPURINOL 100 MG TABLET PO SCH (08:43)
[2018-08-16] MEDS: ASPIRIN 81 MG TABLET.DR PO SCH (08:43)
[2018-08-16 09:18] LABS: Prothrombin Time (Patient) 26.1 Seconds (9.1-10.7)
[2018-08-16 09:19] LABS: INR 2.74 INR (0.92-1.08)
[2018-08-16] MEDS: FUROSEMIDE 10 MG/ML VIAL IV SCH (10:36)
[2018-08-16] MEDS: DILTIAZEM HCL 240 MG CAP.SR.24H PO SCH (10:38)
[2018-08-16 11:19] VITALS: BP 147/57
== END 2018-08-16 11:50 | disposition home health service (06) | DRG 308 ==
LOC: ER 16:16 → SCU 17:55 → MS 08-14 12:52
PROVIDERS: ADMIT Internal Medicine; ATTEND Internal Medicine
DX: E88.09 Other disorders of plasma-protein metabolism, not elsewhere classified; N28.9 Disorder of kidney and ureter, unspecified; R60.0 Localized edema; J44.9 Chronic obstructive pulmonary disease, unspecified; I50.41 Acute combined systolic (congestive) and diastolic (congestive) heart failure; I11.0 Hypertensive heart disease with heart failure; N40.0 Benign prostatic hyperplasia without lower urinary tract symptoms; F41.8 Other specified anxiety disorders; K21.9 Gastro-esophageal reflux disease without esophagitis; D64.9 Anemia, unspecified; I48.2 Chronic atrial fibrillation; Z87.891 Personal history of nicotine dependence; I25.10 Atherosclerotic heart disease of native coronary artery without angina pectoris; C61 Malignant neoplasm of prostate; E87.8 Other disorders of electrolyte and fluid balance, not elsewhere classified
CPT/HCPCS: 36415; 71020; 71046; 80048; 80053; 83519; 83735; 83880; 84484; 85025; 85610; 85730; 93005; 94640; 94664; 94760; 96365; 96372; 96375; 99283

== ENCOUNTER 2018-09-03 17:04 | Inpatient (IN) ==
[2018-09-03] MEDS ORDERED: DILTIAZEM HCL 5 MG/ML VIAL IV ONE (17:25)
[2018-09-03 17:42] LABS: Hematocrit 32.3 % (42.0-52.0); Hemoglobin 10.2 gm/dL (13.5-18.0); Mean Cell Volume 89.2 fl (78-100); Mean Corpuscular Hemoglobin 28.2 pg (27-31); Mean Corpuscular Hgb Conc 31.6 g/dl (32-36); Mean Platelet Volume 10.4 fl (8-11.3); Neutrophil # 17.9 K/mm3 (1.3-6.0); Neutrophil % 88.5 % (42-75.0); Platelet Count 344 K/mm3 (150-450); Red Blood Count 3.62 M/mm3 (4.7-6.0); Red Cell Distribution Width 15.3 % (11.5-14.0); White Blood Count 20.2 K/mm3 (4.0-10.5)
[2018-09-03 18:06] LABS: Troponin I 0.035 ng/mL (0.00-0.10)
[2018-09-03 18:07] LABS: Albumin * 3.1 gm/dl (3.4-5.0); Anion Gap 14.2 mmol/L (6.8-13.8); BUN/Creatinine Ratio 22.2 (9.0-21.6); Bilirubin, Total 0.5 mg/dL (0.0-1.1); Ca. Corrected For Albumin 9.6 mg/dL (8.4-10.2); Calcium * 9.2 mg/dL (7.9-10.9); Potassium 3.2 mmol/L (3.4-4.6); Total Protein 6.7 gm/dL (6.2-8.2)
[2018-09-03 18:14] LABS: Urine Bilirubin Negative (NEGATIVE); Urine Blood Negative /ul (NEGATIVE); Urine Ketone Negative (NEGATIVE); Urine Nitrite Negative (NEGATIVE); Urine Protein 15 mg/dL (NEGATIVE); Urine Urobilinogen Normal (NORMAL)
[2018-09-03 18:22] LABS: Urine Appearance Clear (CLEAR); Urine Bacteria None Seen; Urine Color Yellow; Urine RBC None Seen /hpf (0-5); Urine WBC None Seen /hpf (0-5)
[2018-09-03] MEDS: DILTIAZEM HCL 125 MG in DEXTROSE 5 % IN WATER 100 ML IV PRN ×2 (18:30)
[2018-09-03] MEDS ORDERED: BUMETANIDE 0.25 MG/ML VIAL ONE (19:12)
--- NOTE | 2018-09-03 19:14 | ERNOTE ---
Chest Pain/Cardiac HPI Date of Service: 09/03/18 Chief Complaint: Palpitations Time Seen by Provider: 09/03/18 17:12 Source: patient, family Exam Limitations: no limitations Immunizations: IMMUNIZATION HX Immunizations Up to Date Yes History of Influenza Vaccine Yes Hx Pneumococcal Vaccination Yes Allergies/Adverse Reactions: Allergies lisinopril Adverse Reaction (Mild, Verified 09/03/18 17:26) cough Home Medications: HOME MEDICATIONS Aspirin [Aspirin Enteric Coated] 81 mg PO DAILY 02/05/13 [Last Taken 05/30/14] allopurinol 100 mg tablet 100 mg PO DAILY #90 tab 11/23/17 [Last Taken Unknown] atorvastatin 40 mg tablet 40 mg PO HS #90 tab 11/23/17 [Last Taken Unknown] finasteride 5 mg tablet 5 mg PO DAILY #90 tab 11/23/17 [Last Taken Unknown] nitroglycerin 0.4 mg sublingual tablet 0.4 mg SL Q5MIN PRN #25 tab 11/23/17 [Last Taken Unknown] omeprazole 20 mg tablet,delayed release 20 mg PO DAILY #90 tab 11/23/17 [Last Taken Unknown] polyethylene glycol 3350 17 gram/dose oral powder 17 g PO DAILY PRN #510 g 11/23/17 [Last Taken Unknown] losartan 100 mg tablet 100 mg PO DAILY #90 tab 06/18/18 [Last Taken Unknown] sertraline 100 mg tablet 100 mg PO DAILY #90 tab 06/18/18 [Last Taken Unknown] ipratropium-albuterol 0.5 mg-3 mg(2.5 mg base)/3 mL nebulization soln 3 ml IH QID #180 ml 06/25/18 [Last Taken Unknown] albuterol sulfate HFA 90 mcg/actuation aerosol inhaler 2 puff IH Q4H PRN #18 g 06/26/18 [Last Taken Unknown] PowerWheelchair See Dose Instructions .ROUTE .MEDSUPPLY #1 ea 07/17/18 [Last Taken Unknown] tamsulosin 0.4 mg capsule 0.4 mg PO DAILY #30 cap 07/17/18 [Last Taken Unknown] Cholecalciferol (Vitamin D3) [Vitamin D3] 2,000 unit PO DAILY 08/13/18 [Last Taken Unknown] Cyanocobalamin (Vitamin B-12) [Vitamin B12] 2,500 mcg PO DAILY 08/13/18 [Last Taken Unknown] Diltiazem HCl [Cardizem Cd] 240 mg PO Q24H #30 cap.sr.24h 08/16/18 [Last Taken Unknown] Fluticasone Propion/Salmeterol [Advair 500-50 Diskus] 1 puff INHALATION BID disk.w.dev 08/16/18 [Last Taken Unknown] furosemide 80 mg tablet 80 mg PO BID #60 tab 08/27/18 [Last Taken Unknown] metoprolol tartrate 50 mg tablet 50 mg PO BID #60 tab 08/28/18 [Last Taken Unknown] prednisone 10 mg tablet 10 mg PO .COMPLEX #30 tab 08/29/18 [Last Taken Unknown] Narrative: Increasing SOB and dizziness. Dizziness and lightheadedness. SOB worse with exertion. Increased leg swelling. No fever. Had recent hospitalization. SOB worse with exertion. No chest pain. No fever. Still urinating well. Have been making medication changes but not helping. Timing: constant Severity/Quality: other - no pain Chest Pain Radiation: no radiation Activities at Onset: none Modifying Factors - Improves: Present: nothing Modifying Factors - Worsens: Present: other - activity Nitro Today/Relief: no nitro taken today Associated Symptoms: Present: dizziness, shortness of breath. Absent: headache, syncope, fever/chills Prior Treatment: Reports: recently seen, recently hospitalized Review of Systems - Review of Systems Constitutional: Absent: fever Respiratory: Present: shortness of breath Cardiology: Absent: chest pain Gastrointestinal/Abdominal: Absent: abdominal pain Genitourinary: Absent: dysuria All Other Systems: All systems neg except as marked Medical History (Updated 09/03/18 @ 18:54 by William Lucas MD) Prostatism (Chronic) Chronic pain (Chronic) Anemia (Chronic) Hyperlipidemia (Chronic) Hypertension (Chronic) COPD with asthma (Chronic) Anxiety and depression B12 deficiency Bladder neoplasm Onset Date: ~2011 BPH with obstruction 2001, chronis prostatitis COPD (chronic obstructive pulmonary disease) Onset Date: 1995 [place], followed by CABG x1, VALDERRAMA to LAD Chronic GERD Onset Date: 1994 Hiatal Hernia Coronary artery disease Onset Date: Unknown Diverticulosis Onset Date: Unknown Hyperlipidemia due to dietary fat intake Onset Date: 1995 Hypertension Onset Date: 1975 Surgical History: Surgical History (Updated 08/13/18 @ 18:46 by eLlo Cerrato MD) History of biopsy of bladder Onset Date: 08/02/11 Hx of colonoscopy 2000 Diverticulosis of sigmoid, hyperplastic polyps, 06/01/2014 - moderate to severe sigmoid diverticulosis. Recheck in 10 years Hx of coronary artery bypass graft Onset Date: 1995 CABG x1; VALDERRAMA to the LAD Hx of cystoscopy 11/17/2011 Faith, 08/02/2011 Deorah, 06/29/2012 Faith, 11/29/2012 Faith, 02/07/2013 Faith, 01/16/2017 Faith Family History: Family History (Last Reviewed 08/29/18 @ 08:37 by Melania Dalal LPN) Brother , (3) 2 in there 60s from [place], 1 had lung CA No problems noted. Father , at age 70, kidney CA No problems noted. Mother , at age 57 from CVA No problems noted. Sister , in 70s with breathing problems, 1 A&W, 2 heart issues No problems noted. Social History: Preferred Language Kinyarwanda Do you have any mormonism or No cultural preference? Smoking Status Former smoker Have you smoked in the past 12 No months Do you dip or chew tobacco No Abuse History No History of abuse Psych History Hx of Anxiety,Hx of Depression Alcohol Use none Drug Use none (Last Updated 08/29/18 @ 09:01 by Krystian Galvan DO) No Social History Section defined Physical Exam - Physical Exam General Appearance: Present: alert, other - mild tachypnea noted. Head Exam: Present: normal inspection, no evidence of injury Eye Exam: Normal inspection: bilateral, PERRL: bilateral Ears, Nose, Throat: Present: normal ENT inspection Neck: Present: normal inspection Respiratory: Present: no accessory muscle use, chest nontender, wheezing Cardiovascular/Chest: Present: tachycardia, irregularly irregular Gastrointestinal/Abdominal: Present: normal bowel sounds, nontender, soft Back Exam: Absent: CVA tenderness (R), CVA tenderness (L) Extremity Exam: Present: extremity edema Neurological Exam: Present: alert, no motor/sensory deficits Skin Exam: Present: normal color, warm/dry Progress - Results and Orders Patient's Lab Results:: I have reviewed the patient's lab results. - Vital Signs Patient's Vital Signs:: I have reviewed the patient's vital signs. Vital Signs: Vital Signs 09/03/18 17:05 09/03/18 17:27 09/03/18 17:31 Temperature 37.0 C 37.0 C Pulse Rate 132 H 131 H 131 H Respiratory Rate 27 H 31 H Blood Pressure 151/82 H 151/82 H 151/82 H O2 Sat by Pulse Oximetry 97 97 09/03/18 18:06 09/03/18 18:16 09/03/18 18:30 Temperature Pulse Rate 131 H 131 H 130 H Respiratory Rate 24 H 24 H Blood Pressure 141/93 H 123/99 H 119/95 H O2 Sat by Pulse Oximetry 98 99 - EKG EKG #1 EKG: atrial fibrillation EKG read: Interp. by me EKG Comments: A fib RVR rate non-specific ST/T wave changes, no STEMI noted - X-Ray X-Ray #1 X-Ray: chest Interpretation: Interp. by me X-ray Comments: No real time radiology reads, no acute process by my interpretation. - Progress/Reassessment Chief Complaint: Palpitations Progress Note-Subjective: 09/03/18 18:55 IV cardizem and IV cardizem drip initiated, given IV Bumex. Dr Martinez saw the patient in the ED for admission. Departure Clinical Impression: Atrial fibrillation with RVR, CHF (congestive heart failure), Leukocytosis, Renal insufficiency - Departure Disposition: Still a patient Condition: Fair
--- NOTE | 2018-09-03 19:58 | HP ---
Chief Complaint - Chief Complaint Date of Service: 09/03/18 Time of Service: 19:58 Chief Complaint: Shortness of breath, edema History of Present Illness: Salvador is a 73 yo male that presented to the [facility] ER for evaluation of shortness of breath, lower extremity edema, and palpitations. She has a history of atrial fibrillation with rapid rate just 3 weeks ago that required admission to the hospital. He reports feeling similar symptoms. He has been taking all of his medication at home. He reports the lasix works to make him go to the bathroom but he does not notice any difference in his extremities. He denies any chest pain. 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 Recheck in 10 years Hx of coronary artery bypass graft Onset Date: 1995 CABG x1; VALDERRAMA to the LAD Hx of cystoscopy 11/17/2011 Faith, 08/02/2011 Lisa, 06/29/2012 Faith, 11/29/2012 Faith, 02/07/2013 Faith, 01/16/2017 Faith Family History: Family History (Last Reviewed 08/29/18 @ 08:37 by Melania Dalal LPN) Brother , (3) 2 in there 60s from [place], 1 had lung CA No problems noted. Father , at age 70, kidney CA No problems noted. Mother , at age 57 from CVA No problems noted. Sister , in 70s with breathing problems, 1 A&W, 2 heart issues No problems noted. Social History: Patient Lives/Resources Home Utilized Occupation RETIRED Preferred Language Bengali Do you have any mosque or No cultural preference? Smoking Status Former smoker Have you smoked in the past 12 No months Do you dip or chew tobacco No Abuse History No History of abuse Psych History Hx of Anxiety,Hx of Depression Alcohol Use none Drug Use none (Last Updated 08/29/18 @ 09:01 by Krystian Galvan DO) No Social History Section defined Review Of Systems (GEN) - Review of Systems Generalized/Overall Review: Present: Weakness. Absent: Chills, Fever EENTM: Present: No Symptoms Reported Respiratory: Present: Cough, Shortness of Breath Cardiac: Present: Edema, Palpitations. Absent: Chest Pain, Syncope Abdominal: Absent: Nausea, Vomiting, Abdominal Pain, Constipation, Diarrhea Genitourinary: Present: No Symptoms Reported Musculoskeletal: Present: No Symptoms Reported Neurological: Present: No Symptoms Reported Skin: Present: No Symptoms Reported Endocrine: Present: No Symptoms Reported Immunizations: IMMUNIZATION HX Immunizations Up to Date Yes History of Influenza Vaccine Yes Hx Pneumococcal Vaccination Yes Allergies/Adverse Reactions: Allergies Allergy/AdvReac Type Severity Reaction Status Date / Time lisinopril AdvReac Mild cough Verified 09/03/18 17:26 Home Medications: HOME MEDICATIONS Aspirin [Aspirin Enteric Coated] 81 mg PO DAILY 02/05/13 [Last Taken 05/30/14] allopurinol 100 mg tablet 100 mg PO DAILY #90 tab 11/23/17 [Last Taken Unknown] atorvastatin 40 mg tablet 40 mg PO HS #90 tab 11/23/17 [Last Taken Unknown] finasteride 5 mg tablet 5 mg PO DAILY #90 tab 11/23/17 [Last Taken Unknown] nitroglycerin 0.4 mg sublingual tablet 0.4 mg SL Q5MIN PRN #25 tab 11/23/17 [Last Taken Unknown] omeprazole 20 mg tablet,delayed release 20 mg PO DAILY #90 tab 11/23/17 [Last Taken Unknown] polyethylene glycol 3350 17 gram/dose oral powder 17 g PO DAILY PRN #510 g 11/23/17 [Last Taken Unknown] losartan 100 mg tablet 100 mg PO DAILY #90 tab 06/18/18 [Last Taken Unknown] sertraline 100 mg tablet 100 mg PO DAILY #90 tab 06/18/18 [Last Taken Unknown] ipratropium-albuterol 0.5 mg-3 mg(2.5 mg base)/3 mL nebulization soln 3 ml IH QID #180 ml 06/25/18 [Last Taken Unknown] albuterol sulfate HFA 90 mcg/actuation aerosol inhaler 2 puff IH Q4H PRN #18 g 06/26/18 [Last Taken Unknown] PowerWheelchair See Dose Instructions .ROUTE .MEDSUPPLY #1 ea 07/17/18 [Last Taken Unknown] tamsulosin 0.4 mg capsule 0.4 mg PO DAILY #30 cap 07/17/18 [Last Taken Unknown] Cholecalciferol (Vitamin D3) [Vitamin D3] 2,000 unit PO DAILY 08/13/18 [Last Taken Unknown] Cyanocobalamin (Vitamin B-12) [Vitamin B12] 2,500 mcg PO DAILY 08/13/18 [Last Taken Unknown] Diltiazem HCl [Cardizem Cd] 240 mg PO Q24H #30 cap.sr.24h 08/16/18 [Last Taken Unknown] furosemide 80 mg tablet 80 mg PO BID #60 tab 08/27/18 [Last Taken Unknown] metoprolol tartrate 50 mg tablet 50 mg PO BID #60 tab 08/28/18 [Last Taken Unknown] prednisone 10 mg tablet 10 mg PO .COMPLEX #30 tab 08/29/18 [Last Taken Unknown] Exam - Exam Vital Signs: Vital Signs - Last Taken Temp 37.1 C 09/03/18 19:00 Pulse 131 H 09/03/18 19:47 Resp 30 H 09/03/18 19:47 BP 140/81 09/03/18 19:47 Pulse Ox 100 09/03/18 19:47 Constitutional: Present: Alert, Oriented x3, Cooperative ENT Exam: Present: hearing grossly normal Eye Exam: bilateral eye: normal inspection Respiratory: Present: lungs clear, normal breath sounds, no respiratory distress Cardiovascular/Chest: Present: tachycardia, irregularly irregular Peripheral Pulses: radial (R): 2+, radial (L): 2+ Abdomen: Present: Normal bowel sounds, soft, nontender, nondistended Extremity: Present: lower extremity edema - 3+, other - Compression stockings on Skin Exam: Present: normal color, warm/dry, no cyanosis Appearance: Present: appropriate appearance, appropriate insight Eye contact: Present: cooperative, good eye contact, normal speech Diagnostic Studies: Abnormal Lab Results 09/03/18 09/03/18 09/03/18 Range/Units 17:32 17:32 17:32 WBC 20.2 H (4.0-10.5) K/mm3 RBC 3.62 L (4.7-6.0) M/mm3 Hgb 10.2 L (13.5-18.0) gm/dL Hct 32.3 L (42.0-52.0) % MCHC 31.6 L (32-36) g/dl RDW 15.3 H (11.5-14.0) % Immature Gran % (Auto) 1.10 H (0.001-0.429) % Immature Gran # (Auto) 0.22 H (0.000-0.0310) K/mm3 Neutrophils % 88.5 H (42-75.0) % Lymphocytes % 4.2 L (20-51) % Neutrophils # 17.9 H (1.3-6.0) K/mm3 Lymphocytes # 0.86 L (1.5-3.5) k/mm3 Monocytes # 1.2 H (0.0-1.0) k/mm3 Potassium 3.2 L D (3.4-4.6) mmol/L Anion Gap 14.2 H (6.8-13.8) mmol/L BUN 40 H D (6-23) mg/dL Creatinine 1.80 H (0.4-1.4) mg/dL Est GFR (Non-Af Amer) 39 L D (60-130) mL/min BUN/Creatinine Ratio 22.2 H (9.0-21.6) Random Glucose 217 H (70-110) mg/dL Lactic Acid, Venous 2.9 H* (0.4-2.0) mmol/L B-Natriuretic Peptide 70326 H (5-350) pg/mL Albumin 3.1 L (3.4-5.0) gm/dl Procalcitonin (0.05-0.50) ng/mL Urine Protein (NEGATIVE) mg/dL 09/03/18 09/03/18 Range/Units 17:32 18:02 WBC (4.0-10.5) K/mm3 RBC (4.7-6.0) M/mm3 Hgb (13.5-18.0) gm/dL Hct (42.0-52.0) % MCHC (32-36) g/dl RDW (11.5-14.0) % Immature Gran % (Auto) (0.001-0.429) % Immature Gran # (Auto) (0.000-0.0310) K/mm3 Neutrophils % (42-75.0) % Lymphocytes % (20-51) % Neutrophils # (1.3-6.0) K/mm3 Lymphocytes # (1.5-3.5) k/mm3 Monocytes # (0.0-1.0) k/mm3 Potassium (3.4-4.6) mmol/L Anion Gap (6.8-13.8) mmol/L BUN (6-23) mg/dL Creatinine (0.4-1.4) mg/dL Est GFR (Non-Af Amer) (60-130) mL/min BUN/Creatinine Ratio (9.0-21.6) Random Glucose (70-110) mg/dL Lactic Acid, Venous (0.4-2.0) mmol/L B-Natriuretic Peptide (5-350) pg/mL Albumin (3.4-5.0) gm/dl Procalcitonin Less than 0.05 L (0.05-0.50) ng/mL Urine Protein 15 H (NEGATIVE) mg/dL Laboratory Results WBC 20.2 K/mm3 (4.0-10.5) H 09/03/18 17:32 RBC 3.62 M/mm3 (4.7-6.0) L 09/03/18 17:32 Hgb 10.2 gm/dL (13.5-18.0) L 09/03/18 17:32 Hct 32.3 % (42.0-52.0) L 09/03/18 17:32 MCV 89.2 fl (78-100) 09/03/18 17:32 MCH 28.2 pg (27-31) 09/03/18 17:32 MCHC 31.6 g/dl (32-36) L 09/03/18 17:32 RDW 15.3 % (11.5-14.0) H 09/03/18 17:32 Plt Count 344 K/mm3 (150-450) 09/03/18 17:32 MPV 10.4 fl (8-11.3) 09/03/18 17:32 Immature Gran % (Auto) 1.10 % (0.001-0.429) H 09/03/18 17:32 Immature Gran # (Auto) 0.22 K/mm3 (0.000-0.0310) H 09/03/18 17:32 88.5 % (42-75.0) H 09/03/18 17:32 4.2 % (20-51) L 09/03/18 17:32 6.1 % (0.0-9) 09/03/18 17:32 0.0 % (0.0-3.0) 09/03/18 17:32 0.1 % (0.0-1.0) 09/03/18 17:32 Nucleated RBC % 0.0 k/mm3 (0-1) 09/03/18 17:32 17.9 K/mm3 (1.3-6.0) H 09/03/18 17:32 0.86 k/mm3 (1.5-3.5) L 09/03/18 17:32 1.2 k/mm3 (0.0-1.0) H 09/03/18 17:32 0.0 k/mm3 (0.0-0.7) 09/03/18 17:32 Absolute Basophils 0.0 k/mm3 (0.0-0.1) 09/03/18 17:32 Sodium 137 mmol/L (132-142) 09/03/18 17:32 139 mmol/L (130-142) 09/03/18 17:32 Potassium 3.2 mmol/L (3.4-4.6) L D 09/03/18 17:32 Chloride 97 mmol/L (97-106) 09/03/18 17:32 Carbon Dioxide 29.0 mmol/L (24-32.6) 09/03/18 17:32 14.2 mmol/L (6.8-13.8) H 09/03/18 17:32 BUN 40 mg/dL (6-23) H D 09/03/18 17:32 1.80 mg/dL (0.4-1.4) H 09/03/18 17:32 Est GFR (Non-Af Amer) 39 mL/min (60-130) L D 09/03/18 17:32 22.2 (9.0-21.6) H 09/03/18 17:32 217 mg/dL (70-110) H 09/03/18 17:32 2.9 mmol/L (0.4-2.0) H* 09/03/18 17:32 Calcium 9.2 mg/dL (7.9-10.9) 09/03/18 17:32 Calcium Adj for Albumin 9.6 mg/dL (8.4-10.2) 09/03/18 17:32 0.5 mg/dL (0.0-1.1) 09/03/18 17:32 AST 20 U/L (0-48) 09/03/18 17:32 ALT 35 U/L (19-67) 09/03/18 17:32 107 U/L (50-170) 09/03/18 17:32 0.035 ng/mL (0.00-0.10) 09/03/18 17:32 B-Natriuretic Peptide 20854 pg/mL (5-350) H 09/03/18 17:32 6.7 gm/dL (6.2-8.2) 09/03/18 17:32 3.1 gm/dl (3.4-5.0) L 09/03/18 17:32 Less than 0.05 ng/mL (0.05-0.50) L 09/03/18 17:32 Yellow 09/03/18 18:02 Clear (CLEAR) 09/03/18 18:02 7.0 pH (5.0-7.0) 09/03/18 18:02 Ur Specific [place] 1.010 SP.GR. (1.005-1.030) 09/03/18 18:02 15 mg/dL (NEGATIVE) H 09/03/18 18:02 Negative mg/dL (NEGATIVE) 09/03/18 18:02 Negative mg/dL (NEGATIVE) 09/03/18 18:02 Negative /ul (NEGATIVE) 09/03/18 18:02 Negative (NEGATIVE) 09/03/18 18:02 Negative mg/dl (NEGATIVE) 09/03/18 18:02 Prot Sulfosalicylic Acd Negative mg/dL (0) 09/03/18 18:02 Normal EU/dl (NORMAL) 09/03/18 18:02 Ur Leukocyte Esterase Negative /ul (NEGATIVE) 09/03/18 18:02 None seen /hpf (0-5) 09/03/18 18:02 None seen /hpf (0-5) 09/03/18 18:02 Ur Epithelial Cells None seen /hpf (0-5) 09/03/18 18:02 None seen (NONE) 09/03/18 18:02 No culture indicated 09/03/18 18:02 Assessment/Plan - Narrative Narrative: Salvador is a 73 yo male with atrial fibrillation with RVR. He had a similar episode a few weeks ago. Will admit to SCU on diltiazem drip for rate control. He is already on anticoagulation. He has uncontrolled hypervolumia, will trial bumex to see if he has a better response to this while monitoring renal function. He has elevate WBC and lactic acid but clinically he does not have reports of infectious source. He has been on prednisone and the atrial fibrillation with RVR can cause stress induced rise in these values. I do not believe he has an infection present, but will monitor for any clinical signs of one. No antibiotics are indicated at this time. Will control rate and diurese and monitor his response. - Assessment/Plan (1) Atrial fibrillation with rapid ventricular response Problem: Resolved
[2018-09-03] MEDS ORDERED: BUMETANIDE 0.25 MG/ML VIAL IV ONE (20:00)
[2018-09-03] MEDS ORDERED: POLYETHYLENE GLYCOL 3350 119 GM BTL PO PRN (21:04)
[2018-09-03] MEDS: ALBUTEROL SULFATE/IPRATROPIUM 3 ML NEBU IH SCH (21:18)
[2018-09-03] MEDS ORDERED: ROSUVASTATIN CALCIUM 10 MG TABLET ONE (21:58)
[2018-09-03] MEDS: LOSARTAN POTASSIUM 50 MG TABLET PO SCH (22:00)
[2018-09-03] MEDS: METOPROLOL TARTRATE 50 MG TABLET PO SCH (22:01)
[2018-09-03] MEDS: CHOLECALCIFEROL 1,000 UNIT CAPSULE PO SCH (22:12)
[2018-09-03] MEDS: CYANOCOBALAMIN 1,000 MCG TABLET PO SCH (22:12)
[2018-09-03] MEDS: ROSUVASTATIN CALCIUM 20 MG TABLET PO SCH (22:12)
[2018-09-04] MEDS: DILTIAZEM HCL 125 MG in DEXTROSE 5 % IN WATER 100 ML IV PRN ×4 (02:04→11:15)
[2018-09-04] MEDS: ALBUTEROL SULFATE/IPRATROPIUM 3 ML NEBU IH SCH ×5 (06:06→18:05)
[2018-09-04] MEDS: PANTOPRAZOLE SODIUM 20 MG TABLET.DR PO SCH (07:54)
[2018-09-04] MEDS: ASPIRIN 81 MG TABLET.DR PO SCH (08:04)
[2018-09-04] MEDS: CYANOCOBALAMIN 1,000 MCG TABLET PO SCH (08:04)
[2018-09-04] MEDS: CHOLECALCIFEROL 1,000 UNIT CAPSULE PO SCH (08:04)
[2018-09-04] MEDS: SERTRALINE HCL 100 MG TABLET PO SCH (08:05)
[2018-09-04] MEDS: ALLOPURINOL 100 MG TABLET PO SCH (08:05)
[2018-09-04] MEDS: FINASTERIDE 5 MG TABLET PO SCH (08:05)
[2018-09-04] MEDS: METOPROLOL TARTRATE 50 MG TABLET PO SCH ×2 (08:06→20:10)
[2018-09-04] MEDS: LOSARTAN POTASSIUM 50 MG TABLET PO SCH (08:06)
[2018-09-04] MEDS ORDERED: DIGOXIN 0.25 MG/ML AMPUL IV ONE ×2 (08:19→16:16)
[2018-09-04 08:57] LABS: Hematocrit 35.9 % (42.0-52.0); Hemoglobin 11.3 gm/dL (13.5-18.0); Mean Cell Volume 89.3 fl (78-100); Mean Corpuscular Hemoglobin 28.1 pg (27-31); Mean Corpuscular Hgb Conc 31.5 g/dl (32-36); Mean Platelet Volume 9.9 fl (8-11.3); Platelet Count 355 K/mm3 (150-450); Red Blood Count 4.02 M/mm3 (4.7-6.0); Red Cell Distribution Width 15.4 % (11.5-14.0); White Blood Count 21.3 K/mm3 (4.0-10.5)
[2018-09-04 08:58] LABS: Total Cells Counted 100
[2018-09-04] MEDS ORDERED: TAMSULOSIN HCL 0.4 MG CAP.SR.24H PO SCH ×2 (09:00→19:00)
[2018-09-04 09:09] LABS: Anion Gap 2.8 mmol/L (6.8-13.8); BUN/Creatinine Ratio 25.8 (9.0-21.6); Calcium * 9.5 mg/dL (7.9-10.9); Carbon Dioxide 31.1 mmol/L (24-32.6); Estimated Creat Clear 37.7; Magnesium 2.1 mg/dL (1.2-2.8); Potassium 2.9 mmol/L (3.4-4.6)
[2018-09-04 09:17] LABS: Atypical (Reactive) Lymph 1 % (0-2); Lymphocyte 7 % (20-51); Monocyte 5 % (0-9); Neutrophil 87 % (42-75); Neutrophil # 18.5 K/mm3 (1.3-6.0); Platelet Estimate Normal (NORMAL)
[2018-09-04 09:18] LABS: Hypochromia 1+; Poikilocytosis 1+; Polychromasia Trace
[2018-09-04 09:20] LABS: Hypersegmented Polys Trace; Target Cells Trace
[2018-09-04] MEDS: FUROSEMIDE 10 MG/ML VIAL IV SCH ×2 (09:28→20:11)
[2018-09-04] MEDS: POTASSIUM CHLORIDE IN WATER 100 ML IV SCH ×6 (09:59→18:16)
[2018-09-04] MEDS ORDERED: SODIUM CHLORIDE 3 % 500 ML IV SCH (13:00)
[2018-09-04 15:09] LABS: Hematocrit 35.6 % (42.0-52.0); Mean Cell Volume 90.4 fl (78-100); Mean Corpuscular Hemoglobin 27.9 pg (27-31); Mean Corpuscular Hgb Conc 30.9 g/dl (32-36); Mean Platelet Volume 10.3 fl (8-11.3); Platelet Count 358 K/mm3 (150-450); Red Blood Count 3.94 M/mm3 (4.7-6.0); Red Cell Distribution Width 15.5 % (11.5-14.0); White Blood Count 19.1 K/mm3 (4.0-10.5)
[2018-09-04 15:11] LABS: Total Cells Counted 100
[2018-09-04 15:23] LABS: Eosinophil 1 % (0-3); Lymphocyte 22 % (20-51); Monocyte 9 % (0-9); Neutrophil 68 % (42-75); Platelet Estimate Normal (NORMAL); RBC Morphology Normal (NORMAL)
[2018-09-04 15:27] LABS: Anion Gap 13.3 mmol/L (6.8-13.8); BUN/Creatinine Ratio 22.3 (9.0-21.6); Calcium * 9.4 mg/dL (7.9-10.9); Carbon Dioxide 29.7 mmol/L (24-32.6); Estimated Creat Clear 31.1
--- NOTE | 2018-09-04 15:39 | ECHO ---
This report is available in the EMR
[2018-09-04] MEDS ORDERED: POTASSIUM CHLORIDE 10 MEQ in NORMAL SALINE 1,000 ML IV SCH (16:45)
[2018-09-04] MEDS: POTASSIUM CHLORIDE 20 MEQ TABLET.SA PO SCH (16:47)
[2018-09-04] MEDS ORDERED: DILTIAZEM HCL 240 MG CAP.SR.24H PO ONE (18:28)
[2018-09-04] MEDS ORDERED: AMIODARONE HCL 150 MG/100 ML PIGGYBACK IV ONE (19:37)
[2018-09-04] MEDS ORDERED: AMIODARONE HCL 900 MG in DEXTROSE 5 % IN WATER 500 ML IV SCH ×2 (20:00)
[2018-09-04] MEDS: ROSUVASTATIN CALCIUM 20 MG TABLET PO SCH (20:09)
--- NOTE | 2018-09-04 20:21 | PN ---
Subjective - Date and Time Seen Date: 09/04/18 Time: 08:15 Subjective Narrative: Salvador Lee is a 73 yo wh. male admitted to the [facility] last evening from the ER with an admitting diagnosis of atrial fib with RVR, marked edema, orthopnea, wheezing. His HR is in the 130s. He has been getting more swollen the past several days and can not lie down to sleep. He developed a cough yesterday. His home health nurse called me and I had him come to the ER for evaluation susp ecting he was in CHF. Lab: WBC 20K with a normal diff. probably from the steroids he takes for his asthma and copd. K+3.2, Na+ 136, BNP >10K, EGFR 46, LFTs are normal. CXR: cardiomegally with R. atrial dilation. No pulmonary edema is appreciated. However, he has rales and audible wheezes. ECG: A-fib with RVR Exam shows marked pitting edema in the bilateral LEs, Hand and facial puffiness, and increased abdominal girth. Neck veins are distended and he has a positive HJR> Because he is in CHF, continues with Afib with RVR, severe edema, renal insufficiency, orthophneic, and on chronic O2 I believe he should be converted to an acute admission status. Objective - Review of Systems Generalized/Overall Review: Reports: Weakness, Fatigue, Weight gain EENTM: Reports: No Symptoms Reported Respiratory: Reports: Cough, Shortness of Breath, Orthopnea, Stridor, Wheezing Cardiac: Reports: Palpitations, Other - Atrial fib with RVR Abdominal: Reports: Other - Increased abdominal girth Genitourinary Symptoms: Reports: No Symptoms Reported Musculoskeletal Complaints: Reports: No Symptoms Reported Neurological: Reports: Anxiety Skin: Reports: No Symptoms Reported Endocrine: Reports: No Symptoms Reported - Vitals Vitals: Last Vital Signs Temp 36.9 C 09/04/18 19:08 Pulse 128 H 09/04/18 19:08 Resp 30 H 09/04/18 19:08 BP 124/77 09/04/18 19:08 Pulse Ox 100 09/04/18 19:08 - Abnormal Lab Findings Abnormal Lab Findings: Abnormal Lab Results 09/03/18 09/04/18 09/04/18 Range/Units 20:52 08:40 08:50 WBC 21.3 H (4.0-10.5) K/mm3 RBC 4.02 L (4.7-6.0) M/mm3 Hgb 11.3 L (13.5-18.0) gm/dL Hct 35.9 L (42.0-52.0) % MCHC 31.5 L (32-36) g/dl RDW 15.4 H (11.5-14.0) % Neutrophils % (Manual) 87 H (42-75) % Lymphocytes % (Manual) 7 L (20-51) % Neutrophils # (Manual) 18.5 H (1.3-6.0) K/mm3 Lymphocytes # (Manual) (1.5-3.5) k/mm3 Monocytes # (Manual) 1.1 H (0.0-1.0) k/mm3 Sodium (132-142) mmol/L Plasma Sodium (130-142) mmol/L Potassium (3.4-4.6) mmol/L Chloride (97-106) mmol/L Anion Gap (6.8-13.8) mmol/L BUN (6-23) mg/dL Creatinine (0.4-1.4) mg/dL Est GFR (Non-Af Amer) (60-130) mL/min BUN/Creatinine Ratio (9.0-21.6) Random Glucose (70-110) mg/dL Lactic Acid, Venous 2.2 H* (0.4-2.0) mmol/L Procalcitonin Less than 0.05 L (0.05-0.50) ng/mL 09/04/18 09/04/18 09/04/18 Range/Units 08:50 15:03 15:03 WBC 19.1 H (4.0-10.5) K/mm3 RBC 3.94 L (4.7-6.0) M/mm3 Hgb 11.0 L (13.5-18.0) gm/dL Hct 35.6 L (42.0-52.0) % MCHC 30.9 L (32-36) g/dl RDW 15.5 H (11.5-14.0) % Neutrophils % (Manual) (42-75) % Lymphocytes % (Manual) (20-51) % Neutrophils # (Manual) 13.0 H (1.3-6.0) K/mm3 Lymphocytes # (Manual) 4.2 H (1.5-3.5) k/mm3 Monocytes # (Manual) 1.7 H (0.0-1.0) k/mm3 Sodium 125 L (132-142) mmol/L Plasma Sodium 126 L (130-142) mmol/L Potassium 2.9 L 3.0 L (3.4-4.6) mmol/L Chloride 94 L (97-106) mmol/L Anion Gap 2.8 L (6.8-13.8) mmol/L BUN 40 H 42 H (6-23) mg/dL Creatinine 1.55 H 1.88 H (0.4-1.4) mg/dL Est GFR (Non-Af Amer) 47 L D 37 L D (60-130) mL/min BUN/Creatinine Ratio 25.8 H 22.3 H (9.0-21.6) Random Glucose 167 H 127 H (70-110) mg/dL Lactic Acid, Venous (0.4-2.0) mmol/L Procalcitonin (0.05-0.50) ng/mL - EKG/Xray Findings EKG: atrial fibrillation, atrial flutter - with RVR EKG read: Interp. by me XRAY: chest Interpretation: Reviewed by me - Exam Constitutional: Present: Alert, Oriented x3, Cooperative, Well developed, Well nourished, Moderate distress, Lethargic, Elderly ENT Exam: Present: normal ENT inspection Neck: Present: non-tender, full range of motion, supple Breasts: Present: Exam deferred Respiratory: Present: chest non-tender, decreased breath sounds, accessory muscle use, rales, wheezing, expiration (prolonged) Cardiovascular/Chest: Present: JVD, tachycardia, irregularly irregular Abdomen: Present: Normal bowel sounds, soft, nontender, no rebound tenderness, no hepatospenomegaly, no masses, distended /Rectal: Present: Exam deferred Extremity: Present: normal range of motion, non-tender, lower extremity edema - Bilaterally Skin Exam: Present: normal color, warm/dry, no cyanosis Lymphatic: Present: no adenopathy Neurologic: Present: paramedic supervisor II-XII nml as tested, normal cerebellar test, no motor/sensory deficits, alert, normal mood/affect, oriented x 3 Appearance: Present: appropriate appearance, appropriate insight, neat, no memory impairment Eye contact: Present: cooperative, good eye contact, normal speech Thoughts: Present: normal thought pattern, no apparent hallucination Assessment/Plan Plan Narrative: 1. Diurese with furosemide bid 2. Add Lanoxin 3. Continue Cardiezem 4. Add K riders 5. Add hypertonic saline 6. Recheck lab this afternoon. 7. Consider Amiodarone after fluid volume reduced. 8. Phone consult with quality liaison. - Problems/Diagnosis (1) CHF (congestive heart failure) Problem: Acute Qualifiers: (2) Atrial fibrillation with rapid ventricular response Problem: Resolved (3) Hypokalemia Problem: Acute (4) Hyponatremia Problem: Acute (5) Bilateral lower extremity edema Problem: Acute (6) COPD (chronic obstructive pulmonary disease) Problem: Chronic Qualifiers: COPD type: unspecified COPD Qualified Code(s): J44.9 - Chronic obstructive pulmonary disease, unspecified (7) Leukocytosis Problem: Acute (8) Renal insufficiency Problem: Acute
--- NOTE | 2018-09-04 20:25 | PN ---
Progess Note - Interim Date: 09/04/18 Time: 12:45 Narrative: 09/04/18 20:21 Kalpesh is resting well and tolerating the meds and diuresing well He has no complaints. His VS remain stable except his heart rate which is still in the 130s. He has dropped about 10 lbs of water overnight and continues to diurese this morning. He seems to be giving up his fluids easily with IV furosemide. Repeat lab this afternoon.
--- NOTE | 2018-09-04 20:56 | PN ---
Erin Note - Interim Date: 09/04/18 Time: 19:20 Narrative: 09/04/18 20:26 Kalpesh continues to improve. He is breathing easier. The leg edema is much improved and the neck veins are no longer distended. His HR still is about 130 bpm. BP is ok. He has not slowed down inspite of cardizem drip, the addition of Digoxin (has had 2 doses of 0.25mg IV 6 hrs apart). I will start Amiodarone per our protocol now and hope he slows down or converts. I will call the reproduction specialist personnel supervisor @ [facility]. It will be Dr. Hankins. 09/04/18 20:48 09/04/18 20:48
[2018-09-04] MEDS ORDERED: ENOXAPARIN SODIUM 40 MG/0.4 ML SYRG SC SCH (21:00)
[2018-09-04] MEDS: ALBUTEROL SULFATE 2.5 MG/0.5 ML VIAL.NEB IH PRN (22:46)
[2018-09-05 05:37] LABS: Hematocrit 36.7 % (42.0-52.0); Hemoglobin 11.3 gm/dL (13.5-18.0); Mean Corpuscular Hemoglobin 27.7 pg (27-31); Mean Corpuscular Hgb Conc 30.8 g/dl (32-36); Mean Platelet Volume 10.2 fl (8-11.3); Platelet Count 364 K/mm3 (150-450); Red Blood Count 4.08 M/mm3 (4.7-6.0); Red Cell Distribution Width 15.5 % (11.5-14.0); White Blood Count 19.9 K/mm3 (4.0-10.5)
[2018-09-05 05:44] LABS: Total Cells Counted 100
[2018-09-05 05:52] LABS: Albumin * 3.3 gm/dl (3.4-5.0); Anion Gap 11.8 mmol/L (6.8-13.8); BUN/Creatinine Ratio 27.9 (9.0-21.6); Bilirubin, Total 0.7 mg/dL (0.0-1.1); Ca. Corrected For Albumin 9.6 mg/dL (8.4-10.2); Calcium * 9.4 mg/dL (7.9-10.9); Carbon Dioxide 31.2 mmol/L (24-32.6); Digoxin 0.7 ng/mL (0.5-2.0); Total Protein 6.8 gm/dL (6.2-8.2)
[2018-09-05] MEDS: ALBUTEROL SULFATE/IPRATROPIUM 3 ML NEBU IH SCH (06:11)
[2018-09-05 06:15] LABS: Eosinophil 3 % (0-3); Lymphocyte 10 % (20-51); Monocyte 4 % (0-9); Neutrophil 83 % (42-75); Neutrophil # 16.5 K/mm3 (1.3-6.0); Platelet Estimate Normal (NORMAL); RBC Morphology Normal (NORMAL)
[2018-09-05] MEDS: PANTOPRAZOLE SODIUM 20 MG TABLET.DR PO SCH (07:14)
[2018-09-05] MEDS: LOSARTAN POTASSIUM 50 MG TABLET PO SCH (08:16)
[2018-09-05] MEDS: FINASTERIDE 5 MG TABLET PO SCH (08:17)
[2018-09-05] MEDS: CHOLECALCIFEROL 1,000 UNIT CAPSULE PO SCH (08:17)
[2018-09-05] MEDS: POTASSIUM CHLORIDE 20 MEQ TABLET.SA PO SCH (08:17)
[2018-09-05] MEDS: CYANOCOBALAMIN 1,000 MCG TABLET PO SCH (08:18)
[2018-09-05] MEDS: SERTRALINE HCL 100 MG TABLET PO SCH (08:18)
[2018-09-05] MEDS: ALLOPURINOL 100 MG TABLET PO SCH (08:18)
[2018-09-05] MEDS: METOPROLOL TARTRATE 50 MG TABLET PO SCH (08:18)
[2018-09-05] MEDS: ASPIRIN 81 MG TABLET.DR PO SCH (08:24)
[2018-09-05] MEDS: FUROSEMIDE 10 MG/ML VIAL IV SCH (08:24)
--- NOTE | 2018-09-05 08:39 | DS ---
Transfer Discharge Summary - Diagnosis(s)/Problems (1) CHF (congestive heart failure) Problem: Acute (2) Atrial fibrillation with rapid ventricular response Problem: Acute (3) Hypokalemia Problem: Resolved (4) Hyponatremia Problem: Resolved (5) Bilateral lower extremity edema Problem: Chronic (6) COPD (chronic obstructive pulmonary disease) Problem: Chronic (7) Leukocytosis Problem: Acute (8) Renal insufficiency Problem: Chronic - Course Description of Stay: Salvador Lee is a 73 yo wh male who presented to ER in CHF and A-fib with RVR. He was started on IV diuretics and IV Cardizem he has remained on a Cardizem drip through the night and through yesterday and it did not touch his heart rate of 130. I added digoxin 0.25 mg IV twice about 6 hours apart and that did not change his rate either. The aggressive diuresis did drop his sodium down to 125 and his potassium to 2.9. He has received hypertonic saline and K riders and this morning's labs shows both the sodium and potassium are in normal reference range. He had an echocardiogram done yesterday which shows ejection fraction of only 19%. I started IV amiodarone last evening and it has lowered the rate to 123 this morning. I spoke with Dr. Hankins at [place] last night and we agreed that I would keep him here to see if he would convert through the night which she has not. I have diuresed approximately 15 pounds of water off of him since admission to ER. His edema is much improved. His breathing is better and there is less wheezing. I suspect a lot of his asthma is cardiac asthma as well as COPD from long-term smoking in the past. He continues to demonstrate stage III chronic kidney disease. It has worsened slightly with the aggressive diuresis. He remains alert and oriented and is in no distress this morning at the time of my exam. He will be transferred to [facility] to have a TAMIE and DC cardioversion. But with his ejection fraction of only 19% he may need a heart cath and a implantable pacemaker and AICD. I will leave that to Dr. Hankins's expert opinion. He will be transferred by ground ambulance. Procedures Performed: none - Results and Findings Results and Findings: Laboratory Results - last 24 hr 09/04/18 09/04/18 09/04/18 08:40 08:50 08:50 WBC 21.3 H RBC 4.02 L Hgb 11.3 L Hct 35.9 L MCV 89.3 MCH 28.1 MCHC 31.5 L RDW 15.4 H Plt Count 355 MPV 9.9 Neutrophils % (Manual) 87 H Lymphocytes % (Manual) 7 L Monocytes % (Manual) 5 Eosinophils % (Manual) Neutrophils # (Manual) 18.5 H Lymphocytes # (Manual) 1.5 Monocytes # (Manual) 1.1 H Eosinophils # (Manual) Hypersegmented Polys Trace Atypic/Reactive Lymphs 1 Platelet Estimate Normal RBC Morphology Polychromasia Trace Hypochromasia 1+ Poikilocytosis 1+ Target Cells Trace Sodium 125 L Plasma Sodium 126 L Potassium 2.9 L Chloride 94 L Carbon Dioxide 31.1 Anion Gap 2.8 L BUN 40 H Creatinine 1.55 H Est GFR (Non-Af Amer) 47 L D BUN/Creatinine Ratio 25.8 H Random Glucose 167 H Lactic Acid, Venous Calcium 9.5 Calcium Adj for Albumin Magnesium 2.1 Total Bilirubin AST ALT Alkaline Phosphatase Troponin I Total Protein Albumin Procalcitonin Less than 0.05 L Digoxin 09/04/18 09/04/18 09/04/18 11:06 15:03 15:03 WBC 19.1 H RBC 3.94 L Hgb 11.0 L Hct 35.6 L MCV 90.4 MCH 27.9 MCHC 30.9 L RDW 15.5 H Plt Count 358 MPV 10.3 Neutrophils % (Manual) 68 Lymphocytes % (Manual) 22 Monocytes % (Manual) 9 Eosinophils % (Manual) 1 Neutrophils # (Manual) 13.0 H Lymphocytes # (Manual) 4.2 H Monocytes # (Manual) 1.7 H Eosinophils # (Manual) 0.2 Hypersegmented Polys Atypic/Reactive Lymphs Platelet Estimate Normal RBC Morphology Normal Polychromasia Hypochromasia Poikilocytosis Target Cells Sodium 137 Plasma Sodium 137 Potassium 3.0 L Chloride 97 Carbon Dioxide 29.7 Anion Gap 13.3 BUN 42 H Creatinine 1.88 H Est GFR (Non-Af Amer) 37 L D BUN/Creatinine Ratio 22.3 H Random Glucose 127 H Lactic Acid, Venous Calcium 9.4 Calcium Adj for Albumin Magnesium Total Bilirubin AST ALT Alkaline Phosphatase Troponin I 0.017 Total Protein Albumin Procalcitonin Digoxin 09/04/18 09/04/18 09/05/18 19:00 19:00 05:32 WBC 19.9 H RBC 4.08 L Hgb 11.3 L Hct 36.7 L MCV 90.0 MCH 27.7 MCHC 30.8 L RDW 15.5 H Plt Count 364 MPV 10.2 Neutrophils % (Manual) 83 H Lymphocytes % (Manual) 10 L Monocytes % (Manual) 4 Eosinophils % (Manual) 3 Neutrophils # (Manual) 16.5 H Lymphocytes # (Manual) 2.0 Monocytes # (Manual) 0.8 Eosinophils # (Manual) 0.6 Hypersegmented Polys Atypic/Reactive Lymphs Platelet Estimate Normal RBC Morphology Normal Polychromasia Hypochromasia Poikilocytosis Target Cells Sodium 136 Plasma Sodium Potassium Chloride Carbon Dioxide Anion Gap BUN Creatinine Est GFR (Non-Af Amer) BUN/Creatinine Ratio Random Glucose Lactic Acid, Venous Calcium Calcium Adj for Albumin Magnesium 1.9 Total Bilirubin AST ALT Alkaline Phosphatase Troponin I Total Protein Albumin Procalcitonin Digoxin 09/05/18 09/05/18 05:32 05:32 WBC RBC Hgb Hct MCV MCH MCHC RDW Plt Count MPV Neutrophils % (Manual) Lymphocytes % (Manual) Monocytes % (Manual) Eosinophils % (Manual) Neutrophils # (Manual) Lymphocytes # (Manual) Monocytes # (Manual) Eosinophils # (Manual) Hypersegmented Polys Atypic/Reactive Lymphs Platelet Estimate RBC Morphology Polychromasia Hypochromasia Poikilocytosis Target Cells Sodium 134 Plasma Sodium 135 Potassium 4.0 D Chloride 95 L Carbon Dioxide 31.2 Anion Gap 11.8 BUN 53 H Creatinine 1.90 H Est GFR (Non-Af Amer) 37 L BUN/Creatinine Ratio 27.9 H Random Glucose 132 H Lactic Acid, Venous 1.7 Calcium 9.4 Calcium Adj for Albumin 9.6 Magnesium Total Bilirubin 0.7 AST 19 ALT 35 Alkaline Phosphatase 116 Troponin I Total Protein 6.8 Albumin 3.3 L Procalcitonin Digoxin 0.7 - Medications Medications: Active Medications Albuterol Sulfate (Albuterol Sulfate 2.5 Mg/0.5ml) 2.5 mg IH Q4H PRN PRN Reason: Wheezing Last Admin: 09/04/18 22:46 Dose: 2.5 mg Documented by: Albuterol/Ipratropium (Duoneb 2.5-0.5mg/3ml Soln) 3 ml IH QIDRT ANTONIO Stop: 10/04/18 07:01 Last Admin: 09/05/18 06:11 Dose: 3 ml Documented by: Allopurinol (Zyloprim) 100 mg PO DAILY ANTONIO Stop: 10/04/18 09:01 Last Admin: 09/05/18 08:18 Dose: 100 mg Documented by: Aspirin (Aspirin Enteric Coated) 81 mg PO DAILY ANTONIO Stop: 10/04/18 09:01 Last Admin: 09/04/18 08:04 Dose: 81 mg Documented by: Cholecalciferol (Vitamin D) 2,000 unit PO DAILY ANTONIO Stop: 10/03/18 21:31 Last Admin: 09/05/18 08:17 Dose: 2,000 unit Documented by: Cyanocobalamin (Vitamin B-12) 2,500 mcg PO DAILY ANTONIO Stop: 10/03/18 21:31 Last Admin: 09/05/18 08:18 Dose: 2,500 mcg Documented by: Digoxin (Lanoxin) 0.125 mg PO DAILY [facility] Stop: 10/05/18 09:01 Last Admin: 09/05/18 08:17 Dose: 0.125 mg Documented by: Diltiazem HCl (Cardizem Cd) 240 mg PO Q24H ANTONIO Stop: 10/05/18 09:01 Last Admin: 09/05/18 08:16 Dose: 240 mg Documented by: Enoxaparin Sodium (Lovenox) 40 mg SC Q24H ANTONIO Stop: 10/04/18 21:01 Last Admin: 09/04/18 20:09 Dose: 40 mg Documented by: Finasteride (Proscar) 5 mg PO DAILY [facility] Stop: 10/04/18 09:01 Last Admin: 09/05/18 08:17 Dose: 5 mg Documented by: Furosemide (Lasix) 80 mg IV BID ANTONIO Stop: 10/04/18 09:01 Last Admin: 09/04/18 20:11 Dose: 80 mg Documented by: Amiodarone HCl 900 mg/ (Dextrose/Water) 518 mls @ 0 mls/hr IV ONCE [facility]; Protocol Stop: 09/05/18 19:52 Last Titration: 09/05/18 03:17 Dose: 16 mls/hr Documented by: Losartan Potassium (Cozaar) 100 mg PO DAILY [facility] Stop: 10/03/18 21:31 Last Admin: 09/05/18 08:16 Dose: 100 mg Documented by: Metoprolol Tartrate (Lopressor) 50 mg PO BID [facility] Stop: 10/03/18 21:16 Last Admin: 09/05/18 08:18 Dose: 50 mg Documented by: Pantoprazole Sodium (Protonix) 20 mg PO DAILY@0700 [facility] Stop: 10/04/18 07:01 Last Admin: 09/05/18 07:14 Dose: 20 mg Documented by: Potassium Chloride (K-Dur) 20 meq PO BIDWM [facility] Stop: 10/04/18 17:01 Last Admin: 09/05/18 08:17 Dose: 20 meq Documented by: Rosuvastatin Calcium (Crestor) 20 mg PO HS [facility] Stop: 10/03/18 21:31 Last Admin: 09/04/18 20:09 Dose: 20 mg Documented by: Sertraline HCl (Zoloft) 100 mg PO DAILY [facility] Stop: 10/04/18 09:01 Last Admin: 09/05/18 08:18 Dose: 100 mg Documented by: Tamsulosin HCl (Flomax) 0.4 mg PO DAILY@1900 [facility] Stop: 10/04/18 19:01 Last Admin: 09/04/18 18:16 Dose: 0.4 mg Documented by: Discontinued Medications Albuterol/Ipratropium (Duoneb 2.5-0.5mg/3ml Soln) 3 ml IH QID [facility] Stop: 10/03/18 21:16 Last Admin: 09/04/18 06:06 Dose: 3 ml Documented by: Bumetanide (Bumex) 1 mg IV ONCE ONE Stop: 09/03/18 20:01 Last Admin: 09/03/18 19:00 Dose: 1 mg Documented by: Digoxin (Lanoxin) 0.25 mg IV ONCE ONE Stop: 09/04/18 08:20 Last Admin: 09/04/18 09:00 Dose: 0.25 mg Documented by: Digoxin (Lanoxin) 0.25 mg IV ONCE ONE Stop: 09/04/18 16:17 Last Admin: 09/04/18 16:26 Dose: 0.25 mg Documented by: Diltiazem HCl (Cardizem) 10 mg IV ONCE ONE Stop: 09/03/18 17:26 Last Admin: 09/03/18 17:31 Dose: 10 mg Documented by: Diltiazem HCl (Cardizem Cd) 240 mg PO ONCE ONE Stop: 09/04/18 18:29 Last Admin: 09/04/18 18:31 Dose: 240 mg Documented by: Diltiazem HCl 125 mg/ Dextrose (/Water) 125 mls @ 0 mls/hr IV TITR PRN; Protocol PRN Reason: Arrhythmia Stop: 10/03/18 18:01 Last Titration: 09/04/18 19:32 Dose: 0 mg/hr, 0 mls/hr Documented by: Potassium Chloride/Water (Kcl 10 Meq/100 Ml Piggyback) 100 mls @ 100 mls/hr IV Q1H ANTONIO Stop: 09/04/18 12:44 Last Infusion: 09/04/18 13:51 Dose: Infused Documented by: Sodium Chloride (Hypertonic) (Sodium Chloride 3%) 500 mls @ 37 mls/hr IV .[id number] ANTONIO Stop: 10/04/18 13:01 Last Infusion: 09/04/18 16:19 Dose: 0 mls/hr Documented by: Potassium Chloride/Water (Kcl 10 Meq/100 Ml Piggyback) 100 mls @ 100 mls/hr IV Q1H ANTONIO Stop: 09/04/18 18:44 Last Infusion: 09/04/18 19:36 Dose: Infused Documented by: Amiodarone HCl/Dextrose (Nexterone 150 Mg Piggyback) 150 mg in 100 mls @ 600 mls/hr IV ONCE ONE Stop: 09/04/18 19:46 Last Infusion: 09/04/18 20:19 Dose: Infused Documented by: - Disposition Disposition: Short Term Hospital Inpatient Condition: Fair Discharge Date: 09/05/18 Discharge Time: :30
[2018-09-05] MEDS ORDERED: DIGOXIN 0.125 MG TABLET PO SCH (09:00)
[2018-09-05] MEDS ORDERED: DILTIAZEM HCL 240 MG CAP.SR.24H PO SCH (09:00)
[2018-09-05] MEDS: ALBUTEROL SULFATE 2.5 MG/0.5 ML VIAL.NEB IH PRN (09:01)
[2018-09-05 10:22] VITALS: BP 111/74
== END 2018-09-05 10:15 | disposition short-term general hospital (02) | DRG 292 ==
LOC: ER 17:04 → INTOOBSV 18:42 → SCU 18:42
PROVIDERS: ADMIT Family Medicine; ATTEND Family Medicine
CPT/HCPCS: 36415; 71020; 71046; 80048; 80053; 80162; 81001; 83519; 83605; 83735; 83880; 84145; 84295; 84484; 85007; 85025; 87040; 93005; 93306; 94640; 94664; 96365; 96366; 96375; 99285; G0378

== ENCOUNTER 2018-12-02 16:41 | Inpatient (IN) ==
[2018-12-02] MEDS ORDERED: ALBUTEROL SULFATE/IPRATROPIUM 3 ML NEBU IH ONE (16:50)
[2018-12-02 17:08] LABS: Hematocrit 27.3 % (42.0-52.0); Hemoglobin 8.4 gm/dL (13.5-18.0); Mean Cell Volume 93.2 fl (78-100); Mean Corpuscular Hemoglobin 28.7 pg (27-31); Mean Corpuscular Hgb Conc 30.8 g/dl (32-36); Mean Platelet Volume 9.7 fl (8-11.3); Platelet Count 291 K/mm3 (150-450); Red Blood Count 2.93 M/mm3 (4.7-6.0); Red Cell Distribution Width 16.1 % (11.5-14.0); White Blood Count 21.7 K/mm3 (4.0-10.5)
[2018-12-02 17:10] LABS: Total Cells Counted 100
[2018-12-02 17:24] LABS: Band 1 % (0-2.0); Lymphocyte 12 % (20-51); Monocyte 3 % (0-9); Neutrophil 84 % (42-75); Neutrophil # 18.2 K/mm3 (1.3-6.0); Platelet Estimate Normal (NORMAL)
[2018-12-02 17:26] LABS: Anisocytosis 1+
[2018-12-02 17:27] LABS: Albumin * 3.3 gm/dl (3.4-5.0); Anion Gap 14.3 mmol/L (6.8-13.8); Bilirubin, Total 0.7 mg/dL (0.0-1.1); Ca. Corrected For Albumin 9.1 mg/dL (8.4-10.2); Calcium * 8.9 mg/dL (7.9-10.9); Potassium 4.3 mmol/L (3.4-4.6); Total Protein 6.9 gm/dL (6.2-8.2); Troponin I 0.017 ng/mL (0.00-0.10)
[2018-12-02] MEDS ORDERED: FUROSEMIDE 10 MG/ML VIAL IV ONE (17:34)
--- NOTE | 2018-12-02 17:53 | ERNOTE ---
Dyspnea - Date Date of Service: 12/02/18 - General Presenting Symptoms: shortness of breath, difficulty of breathing, wheezing Time Seen by Provider: 12/02/18 16:49 Source: patient, EMS - Immun/Allergies/Home Medications Immunizations: IMMUNIZATION HX Immunizations Up to Date Yes History of Influenza Vaccine Yes Hx Pneumococcal Vaccination Yes Allergies/Adverse Reactions: Allergies lisinopril Adverse Reaction (Mild, Verified 12/02/18 16:47) cough Home Medications: HOME MEDICATIONS Aspirin [Aspirin Enteric Coated] 81 mg PO DAILY 02/05/13 [Last Taken 05/30/14] allopurinol 100 mg tablet 100 mg PO DAILY #90 tab 11/23/17 [Last Taken Unknown] atorvastatin 40 mg tablet 40 mg PO HS #90 tab 11/23/17 [Last Taken Unknown] finasteride 5 mg tablet 5 mg PO DAILY #90 tab 11/23/17 [Last Taken Unknown] nitroglycerin 0.4 mg sublingual tablet 0.4 mg SL Q5MIN PRN #25 tab 11/23/17 [Last Taken Unknown] omeprazole 20 mg tablet,delayed release 20 mg PO DAILY #90 tab 11/23/17 [Last Taken Unknown] polyethylene glycol 3350 17 gram/dose oral powder 17 g PO DAILY PRN #510 g 11/23/17 [Last Taken Unknown] sertraline 100 mg tablet 100 mg PO DAILY #90 tab 06/18/18 [Last Taken Unknown] albuterol sulfate HFA 90 mcg/actuation aerosol inhaler 2 puff IH Q4H PRN #18 g 06/26/18 [Last Taken Unknown] Cholecalciferol (Vitamin D3) [Vitamin D3] 2,000 unit PO DAILY 08/13/18 [Last Taken Unknown] Cyanocobalamin (Vitamin B-12) [Vitamin B12] 2,500 mcg PO DAILY 08/13/18 [Last Taken Unknown] amiodarone 200 mg tablet 400 mg PO DAILY #60 tab 10/02/18 [Last Taken Unknown] apixaban 5 mg tablet 5 mg PO BID #60 tab 10/02/18 [Last Taken Unknown] ipratropium-albuterol 0.5 mg-3 mg(2.5 mg base)/3 mL nebulization soln 3 ml IH QID #180 ml 10/04/18 [Last Taken Unknown] metoprolol tartrate 50 mg tablet 25 mg PO BID #30 tab 11/15/18 [Last Taken Unknown] Furosemide [Lasix] 80 mg PO 1400 12/02/18 [Last Taken Unknown] Tamsulosin HCl [Flomax] 0.4 mg PO HS 12/02/18 [Last Taken Unknown] - History of Present Illness Narrative: patient presents to ed with c/o sob. started last evening, known hx of copd, chf Severity: moderate Treatment COLOR MIXER: paramedics, albuterol, other - solumedrol Initiating event: Reports: upper resp illness Frequency of episodes: Reports: frequent episodes Modifying Factors - (Improves): Reports: albuterol, oxygen Modifying Factors (Worsens): Reports: activity Associated Symptoms-Dyspnea: Reports: fever/chills, cough, wheezing, lightheadedness Review of Systems - Review of Systems Constitutional: Present: See HPI EYE: Present: no symptoms reported ENT: Present: no symptoms reported Respiratory: Present: See HPI, shortness of breath, cough, orthopnea, wheezing Cardiology: Present: no symptoms reported Gastrointestinal/Abdominal: Present: no symptoms reported Genitourinary: Present: no symptoms reported Musculoskeletal: Present: no symptoms reported Skin: Present: no symptoms reported Neurological: Present: no symptoms reported Endocrine: Present: no symptoms reported Hematologic/Lymphatic: Present: no symptoms reported Psych: Present: no symptoms reported All Other Systems: All systems neg except as marked Medical History (Updated 12/01/18 @ 00:01 by ) Prostatism (Chronic) Chronic pain (Chronic) Anemia (Chronic) Hyperlipidemia (Chronic) Hypertension (Chronic) COPD with asthma (Chronic) Anxiety and depression B12 deficiency 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 Recheck in 10 years Hx of coronary artery bypass graft Onset Date: 1995 CABG x1; VALDERRAMA to the L[facility] Hx of cystoscopy 11/17/2011 Faith, 08/02/2011 Deorajessi, 06/29/2012 [facility], 11/29/2012 [facility], 02/07/2013 Faith, 01/16/2017 [facility] Family History: Family History (Last Reviewed 09/12/18 @ 10:06 by Melania Dalal LPN) Brother , (3) 2 in there 60s from [place], 1 had lung CA No problems noted. Father , at age 70, kidney CA No problems noted. Mother , at age 57 from CVA No problems noted. Sister , in 70s with breathing problems, 1 A&W, 2 heart issues No problems noted. Social History: (Last Reviewed 12/02/18 @ 16:47 by Fay Salmeron RN) Social History: Marital status: household members: spouse number of children: 2 current occupational status: retired Highest education level completed: 8th grade Service: No Tobacco: Smoking Status: Former smoker Alcohol: alcohol intake: never Substance Use: substance use type: does not use Dietary Habits: caffeine: Yes Physical Exam - Physical Exam General Appearance: Present: moderate distress, anxious Head Exam: Present: normal inspection, no evidence of injury Eye Exam: Normal inspection: bilateral, PERRL: bilateral, EOMI: bilateral Ears, Nose, Throat: Present: normal ENT inspection, normal pharynx Neck: Present: normal inspection, nontender Respiratory: Present: respiratory distress, decreased breath sounds, rales, rhonchi, wheezing Cardiovascular/Chest: Present: regular rate, rhythm, no murmur, normal peripheral pulses Gastrointestinal/Abdominal: Present: normal bowel sounds, nontender, nondistended, soft, no organomegaly Back Exam: Present: normal inspection, normal range of motion, no CVA tenderness, no vertebral tenderness Extremity Exam: Present: normal inspection, non-tender, normal range of motion, no edema Neurological Exam: Present: alert, oriented, normal mood/affect, no motor/sensory deficits Skin Exam: Present: normal color, warm/dry Lymphatic Exam: Present: no adenopathy Progress - Date and Time Seen: Date and Time: 12/02/18 18:13 patient improve, discussed case with dr dubose, to admit - Results and Orders Patient's Lab Results:: I have reviewed the patient's lab results. - Vital Signs Patient's Vital Signs:: I have reviewed the patient's vital signs. Vital Signs: Vital Signs 12/02/18 16:44 12/02/18 16:52 12/02/18 17:07 Temperature 36.9 C Pulse Rate 85 85 84 Respiratory Rate 26 H 21 H 254 H Blood Pressure 144/69 127/61 O2 Sat by Pulse Oximetry 90 L 96 96 12/02/18 17:20 12/02/18 17:22 12/02/18 17:32 Temperature Pulse Rate 88 83 83 Respiratory Rate 28 H 29 H 14 Blood Pressure 132/65 132/65 O2 Sat by Pulse Oximetry 99 99 94 12/02/18 17:39 Temperature Pulse Rate 86 Respiratory Rate Blood Pressure 130/64 O2 Sat by Pulse Oximetry - EKG EKG #1 EKG: atrial fibrillation - X-Ray X-Ray #1 X-Ray: chest Interpretation: Interp. by me - copd, pneumonia, pulmonary edema - Progress/Reassessment Chief Complaint: Dyspnea Progress:: Improved - Transfer of Care Expected Disposition: Admit Departure Clinical Impression: COPD with asthma, Pneumonia - Departure Disposition: Short Term Hospital Inpatient Condition: Stable Referrals: Krystian Galvan DO [Primary Care Provider] -
[2018-12-02] MEDS ORDERED: AZITHROMYCIN 250 MG TABLET PO ONE (18:16)
[2018-12-02] MEDS ORDERED: cefTRIAXone SODIUM 1,000 MG/100 ML BAG IV ONE (18:16)
--- NOTE | 2018-12-02 18:44 | HP ---
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 Recheck in 10 years Hx of coronary artery bypass graft Onset Date: 1995 CABG x1; VALDERRAMA to the LAD Hx of cystoscopy 11/17/2011 Faith, 08/02/2011 Lisa, 06/29/2012 Faith, 11/29/2012 Faith, 02/07/2013 Faith, 01/16/2017 Faith Family History: Family History (Last Reviewed 09/12/18 @ 10:06 by Melania Dalal LPN) Brother , (3) 2 in there 60s from [place], 1 had lung CA No problems noted. Father , at age 70, kidney CA No problems noted. Mother , at age 57 from CVA No problems noted. Sister , in 70s with breathing problems, 1 A&W, 2 heart issues No problems noted. Social History: (Last Reviewed 12/02/18 @ 19:18 by Latisha Broussard RN) Social History: Marital status: household members: spouse number of children: 2 current occupational status: retired Highest education level completed: 8th grade Service: No Tobacco: Smoking Status: Former smoker Alcohol: alcohol intake: never Substance Use: substance use type: does not use Dietary Habits: caffeine: Yes Review Of Systems (GEN) - Review of Systems Generalized/Overall Review: Present: Weakness, Chills, Malaise. Absent: Fever EENTM: Absent: Ear Pain Respiratory: Present: Shortness of Breath Cardiac: Present: Edema. Absent: Chest Pain Abdominal: Present: Vomiting. Absent: Abdominal Pain, Diarrhea Musculoskeletal: Absent: Back Pain Misc: All systems neg except as marked Immunizations: IMMUNIZATION HX Immunizations Up to Date Yes History of Influenza Vaccine Yes Hx Pneumococcal Vaccination Yes Allergies/Adverse Reactions: Allergies Allergy/AdvReac Type Severity Reaction Status Date / Time lisinopril AdvReac Mild cough Verified 12/02/18 16:47 Home Medications: HOME MEDICATIONS Aspirin [Aspirin Enteric Coated] 81 mg PO DAILY 02/05/13 [Last Taken 05/30/14] allopurinol 100 mg tablet 100 mg PO DAILY #90 tab 11/23/17 [Last Taken Unknown] atorvastatin 40 mg tablet 40 mg PO HS #90 tab 11/23/17 [Last Taken Unknown] finasteride 5 mg tablet 5 mg PO DAILY #90 tab 11/23/17 [Last Taken Unknown] nitroglycerin 0.4 mg sublingual tablet 0.4 mg SL Q5MIN PRN #25 tab 11/23/17 [Last Taken Unknown] omeprazole 20 mg tablet,delayed release 20 mg PO DAILY #90 tab 11/23/17 [Last Taken Unknown] polyethylene glycol 3350 17 gram/dose oral powder 17 g PO DAILY PRN #510 g 11/23/17 [Last Taken Unknown] sertraline 100 mg tablet 100 mg PO DAILY #90 tab 06/18/18 [Last Taken Unknown] albuterol sulfate HFA 90 mcg/actuation aerosol inhaler 2 puff IH Q4H PRN #18 g 06/26/18 [Last Taken Unknown] Cholecalciferol (Vitamin D3) [Vitamin D3] 2,000 unit PO DAILY 08/13/18 [Last Taken Unknown] Cyanocobalamin (Vitamin B-12) [Vitamin B12] 2,500 mcg PO DAILY 08/13/18 [Last Taken Unknown] amiodarone 200 mg tablet 400 mg PO DAILY #60 tab 10/02/18 [Last Taken Unknown] apixaban 5 mg tablet 5 mg PO BID #60 tab 10/02/18 [Last Taken Unknown] ipratropium-albuterol 0.5 mg-3 mg(2.5 mg base)/3 mL nebulization soln 3 ml IH QID #180 ml 10/04/18 [Last Taken Unknown] metoprolol tartrate 50 mg tablet 25 mg PO BID #30 tab 11/15/18 [Last Taken Unknown] Furosemide [Lasix] 80 mg PO 1400 12/02/18 [Last Taken Unknown] Tamsulosin HCl [Flomax] 0.4 mg PO HS 12/02/18 [Last Taken Unknown] Exam - Exam Vital Signs: Vital Signs - Last Taken Temp 36.9 C 12/02/18 16:44 Pulse 83 12/02/18 18:00 Resp 27 H 12/02/18 18:00 BP 123/67 12/02/18 18:00 Pulse Ox 95 12/02/18 18:00 Constitutional: Present: Alert, Cooperative, Well developed, Well nourished, No distress, Elderly ENT Exam: Present: hearing grossly normal Eye Exam: bilateral eye: normal inspection, PERRL, EOMI Neck: Present: non-tender, supple, normal inspection, trachea midline. Absent: lymphadenopathy (R), lymphadenopathy (L) Back Exam: Present: normal inspection, no CVA tenderness, no vertebral tenderness Respiratory: Present: decreased breath sounds - Bilaterally throughout, rhonchi - Mild bilaterally throughout on expiration, No wheezing Cardiovascular/Chest: Present: normal peripheral pulses, regular rate, rhythm, no murmur, edema Peripheral Pulses: dorsalis-pedis (R): 1+, dorsalis-pedis (L): 1+ Abdomen: Present: Normal bowel sounds, soft, nontender Extremity: Present: non-tender, pedal edema - Trace bilateral feet Skin Exam: Present: normal color, warm/dry Neurologic: Present: alert, normal mood/affect Appearance: Present: appropriate appearance, appropriate insight Eye contact: Present: cooperative, good eye contact Thoughts: Present: normal thought pattern, normal mood /affect Diagnostic Studies: Abnormal Lab Results 12/02/18 12/02/18 12/02/18 Range/Units 17:05 17:05 17:48 WBC 21.7 H (4.0-10.5) K/mm3 RBC 2.93 L (4.7-6.0) M/mm3 Hgb 8.4 L (13.5-18.0) gm/dL Hct 27.3 L (42.0-52.0) % MCHC 30.8 L (32-36) g/dl RDW 16.1 H (11.5-14.0) % Neutrophils % (Manual) 84 H (42-75) % Lymphocytes % (Manual) 12 L (20-51) % Neutrophils # (Manual) 18.2 H (1.3-6.0) K/mm3 pCO2 31.8 L (35.0-48.0) mmHg pO2 58.0 L (83.0-108.0) mmHg HCO3 20.5 L (21.0-28.0) mmol/L Base Excess -3.4 L (-2.0-3.0) mmol/L ABG O2 Sat (Measured) 91.2 L (94.0-98.0) % Anion Gap 14.3 H (6.8-13.8) mmol/L BUN 27 H (6-23) mg/dL Creatinine 2.08 H (0.4-1.4) mg/dL Est GFR (Non-Af Amer) 33 L (60-130) mL/min Random Glucose 172 H (70-110) mg/dL B-Natriuretic Peptide 2255 H (5-350) pg/mL Albumin 3.3 L (3.4-5.0) gm/dl Laboratory Results WBC 21.7 K/mm3 (4.0-10.5) H 12/02/18 17:05 RBC 2.93 M/mm3 (4.7-6.0) L 12/02/18 17:05 Hgb 8.4 gm/dL (13.5-18.0) L 12/02/18 17:05 Hct 27.3 % (42.0-52.0) L 12/02/18 17:05 MCV 93.2 fl (78-100) 12/02/18 17:05 MCH 28.7 pg (27-31) 12/02/18 17:05 MCHC 30.8 g/dl (32-36) L 12/02/18 17:05 RDW 16.1 % (11.5-14.0) H 12/02/18 17:05 Plt Count 291 K/mm3 (150-450) 12/02/18 17:05 MPV 9.7 fl (8-11.3) 12/02/18 17:05 84 % (42-75) H 12/02/18 17:05 Band Neuts % (Manual) 1 % (0-2.0) 12/02/18 17:05 12 % (20-51) L 12/02/18 17:05 3 % (0-9) 12/02/18 17:05 18.2 K/mm3 (1.3-6.0) H 12/02/18 17:05 2.6 k/mm3 (1.5-3.5) 12/02/18 17:05 0.7 k/mm3 (0.0-1.0) 12/02/18 17:05 Normal (NORMAL) 12/02/18 17:05 1+ 12/02/18 17:05 pCO2 31.8 mmHg (35.0-48.0) L 12/02/18 17:48 pO2 58.0 mmHg (83.0-108.0) L 12/02/18 17:48 HCO3 20.5 mmol/L (21.0-28.0) L 12/02/18 17:48 Total CO2 21.5 mmol/L (19.0-24.0) 12/02/18 17:48 Base Excess -3.4 mmol/L (-2.0-3.0) L 12/02/18 17:48 ABG pH 7.43 (7.35-7.45) 12/02/18 17:48 ABG O2 Sat (Measured) 91.2 % (94.0-98.0) L 12/02/18 17:48 Sodium 141 mmol/L (132-142) 12/02/18 17:05 142 mmol/L (130-142) 12/02/18 17:05 Potassium 4.3 mmol/L (3.4-4.6) 12/02/18 17:05 Chloride 102 mmol/L (97-106) 12/02/18 17:05 Carbon Dioxide 29.0 mmol/L (24-32.6) 12/02/18 17:05 14.3 mmol/L (6.8-13.8) H 12/02/18 17:05 BUN 27 mg/dL (6-23) H 12/02/18 17:05 2.08 mg/dL (0.4-1.4) H 12/02/18 17:05 Est GFR (Non-Af Amer) 33 mL/min (60-130) L 12/02/18 17:05 13.0 (9.0-21.6) 12/02/18 17:05 172 mg/dL (70-110) H 12/02/18 17:05 Calcium 8.9 mg/dL (7.9-10.9) 12/02/18 17:05 Calcium Adj for Albumin 9.1 mg/dL (8.4-10.2) 12/02/18 17:05 0.7 mg/dL (0.0-1.1) 12/02/18 17:05 AST 21 U/L (0-48) 12/02/18 17:05 ALT 20 U/L (19-67) 12/02/18 17:05 124 U/L (50-170) 12/02/18 17:05 0.017 ng/mL (0.00-0.10) 12/02/18 17:05 B-Natriuretic Peptide 2255 pg/mL (5-350) H 12/02/18 17:05 6.9 gm/dL (6.2-8.2) 12/02/18 17:05 3.3 gm/dl (3.4-5.0) L 12/02/18 17:05 Assessment/Plan - Narrative Narrative: 73-year-old male with a past medical history of anemia, COPD on home oxygen of 2-1/2 L, chronic pain, coronary artery disease, congestive heart failure, hypertension, hyperlipidemia, GERD, anxiety and depression presents with complaints of weakness and cold-like symptoms. He states that 4 to 5 days ago he and his developed cold-like symptoms. They saw their primary care physician Dr. Galvan who prescribed azithromycin. The last dose of azithromycin was today. The patient states that today he felt weak and was unable to move from one room to the other in his house so his called the ambulance to bring him to the hospital. In the emergency department he was found to have a leukocytosis of 21,000, hemoglobin of 8.4 and hematocrit of 27.3, chest x-ray suspicious for infiltrate. He received a dose of Solu-Medrol in the emergency department with some relief of his shortness of breath. Patient will be admitted for a COPD exacerbation and possible pneumonia. He will be started on Levaquin. - Assessment/Plan (1) COPD exacerbation Problem: Acute (2) Leukocytosis Problem: Acute (3) Pneumonia Problem: Acute Qualifiers: Pneumonia type: due to unspecified organism Laterality: right Lung location: middle lobe of lung Qualified Code(s): J18.1 - Lobar pneumonia, unspecified organism (4) Atrial flutter with controlled response Problem: Chronic (5) CHF (congestive heart failure) Problem: Chronic Qualifiers: (6) Bilateral lower extremity edema Problem: Chronic (7) Anemia Problem: Chronic Qualifiers: (8) Hypertension Problem: Chronic Qualifiers: Hypertension type: essential hypertension Qualified Code(s): I10 - Essential (primary) hypertension (9) BPH (benign prostatic hyperplasia) Problem: Chronic
[2018-12-02] MEDS ORDERED: POLYETHYLENE GLYCOL 3350 119 GM BTL PO PRN (18:46)
[2018-12-02] MEDS ORDERED: NITROGLYCERIN 0.4 MG/TAB BTL SL PRN (18:46)
[2018-12-02] MEDS ORDERED: ROSUVASTATIN CALCIUM 10 MG TABLET ONE (20:13)
[2018-12-02] MEDS: LEVOFLOXACIN IN DEXTROSE 5 % 500 MG/100 ML BAG IV SCH (20:19)
[2018-12-02] MEDS: METHYLPREDNISOLONE SOD SUCC/PF 40 MG/ML VIAL IV SCH (20:19)
[2018-12-02] MEDS: TAMSULOSIN HCL 0.4 MG CAP.SR.24H PO SCH (20:20)
[2018-12-02] MEDS: ROSUVASTATIN CALCIUM 20 MG TABLET PO SCH (20:20)
[2018-12-02] MEDS: APIXABAN 5 MG TABLET PO SCH (20:20)
[2018-12-02] MEDS: ALBUTEROL SULFATE/IPRATROPIUM 3 ML NEBU IH PRN (20:33)
[2018-12-02] MEDS ORDERED: METOPROLOL TARTRATE 50 MG TABLET PO SCH (21:00)
[2018-12-03] MEDS: ALBUTEROL SULFATE 2.5 MG/0.5 ML VIAL.NEB IH PRN ×2 (00:17→13:39)
[2018-12-03] MEDS: METHYLPREDNISOLONE SOD SUCC/PF 40 MG/ML VIAL IV SCH ×3 (00:47→12:16)
[2018-12-03 05:25] LABS: Hematocrit 24.3 % (42.0-52.0); Mean Corpuscular Hemoglobin 28.8 pg (27-31); Mean Corpuscular Hgb Conc 31.3 g/dl (32-36); Mean Platelet Volume 10.1 fl (8-11.3); Platelet Count 270 K/mm3 (150-450); Red Blood Count 2.64 M/mm3 (4.7-6.0); Red Cell Distribution Width 16.4 % (11.5-14.0); White Blood Count 28.4 K/mm3 (4.0-10.5)
[2018-12-03 05:34] LABS: Albumin * 2.9 gm/dl (3.4-5.0); Anion Gap 13.6 mmol/L (6.8-13.8); Bilirubin, Total 0.6 mg/dL (0.0-1.1); Ca. Corrected For Albumin 9.5 mg/dL (8.4-10.2); Calcium * 8.9 mg/dL (7.9-10.9); Carbon Dioxide 27.8 mmol/L (24-32.6); Potassium 3.4 mmol/L (3.4-4.6); Total Protein 6.5 gm/dL (6.2-8.2)
[2018-12-03 05:35] LABS: Hemoglobin 7.6 gm/dL (13.5-18.0)
[2018-12-03 05:36] LABS: Total Cells Counted 100
[2018-12-03 05:45] LABS: Band 5 % (0-2.0); Lymphocyte 4 % (20-51); Neutrophil 91 % (42-75); Neutrophil # 25.8 K/mm3 (1.3-6.0); Platelet Estimate Normal (NORMAL); RBC Morphology Normal (NORMAL)
[2018-12-03] MEDS: ALBUTEROL SULFATE/IPRATROPIUM 3 ML NEBU IH PRN ×3 (06:05→23:36)
[2018-12-03] MEDS: APIXABAN 5 MG TABLET PO SCH ×2 (08:55→20:13)
[2018-12-03] MEDS: ASPIRIN 81 MG TABLET.DR PO SCH (08:55)
[2018-12-03] MEDS: AMIODARONE HCL 200 MG TABLET PO SCH (08:55)
[2018-12-03] MEDS: FINASTERIDE 5 MG TABLET PO SCH (08:55)
[2018-12-03] MEDS: SERTRALINE HCL 100 MG TABLET PO SCH (08:59)
[2018-12-03] MEDS ORDERED: METOPROLOL TARTRATE 25 MG TABLET PO SCH (09:00)
[2018-12-03] MEDS: ALLOPURINOL 100 MG TABLET PO SCH (09:00)
[2018-12-03] MEDS: PANTOPRAZOLE SODIUM 20 MG TABLET.DR PO SCH (09:00)
[2018-12-03] MEDS ORDERED: OMEPRAZOLE 20 MG CAPSULE.SA PO SCH (09:00)
[2018-12-03] MEDS ORDERED: ALBUTEROL SULFATE 2.5 MG/0.5 ML VIAL.NEB IH PRN (13:02)
[2018-12-03] MEDS: ALBUTEROL SULFATE/IPRATROPIUM 3 ML NEBU IH SCH ×2 (14:24→18:00)
[2018-12-03] MEDS: FUROSEMIDE 80 MG TABLET PO SCH (14:35)
--- NOTE | 2018-12-03 17:35 | PN ---
Subjective - Date and Time Seen Date: 12/03/18 Time: 12:45 Subjective Narrative: Salvador Lee was admitted last evening with pneumonia and shortness of breath and leukocytosis. He had been on a Z-Lowell but it did not resolve his lung complaints and he finished it yesterday. He was started on Rocephin in the emergency room has been continued. His main complaints are of dyspnea with exertion labored breathing at rest coughing fever and chills. Chest x-ray reveals a right midlung infiltrate either superior segment of the right middle lobe with a lower right upper lobe. He is receiving breathing treatments routinely. He has been getting IV steroids every 6 hours but his white count has jumped to 28,000 today so I discontinued the steroids. Objective - Review of Systems Generalized/Overall Review: Reports: Weakness, Chills, Fever EENTM: Reports: No Symptoms Reported Respiratory: Reports: Cough Cardiac: Reports: No Symptoms Reported Abdominal: Reports: No Symptoms Reported Genitourinary Symptoms: Reports: No Symptoms Reported Musculoskeletal Complaints: Reports: Joint Pain, Muscle Pain Neurological: Reports: Tremors - Parkinson's tremor, Pre-existing Deficit Skin: Reports: No Symptoms Reported Endocrine: Reports: No Symptoms Reported - Vitals Vitals: Last Vital Signs Temp 36.9 C 12/03/18 15:28 Pulse 81 12/03/18 15:28 Resp 22 H 12/03/18 15:28 BP 164/76 H 12/03/18 15:28 Pulse Ox 96 12/03/18 15:28 - Abnormal Lab Findings Abnormal Lab Findings: Abnormal Lab Results 12/02/18 12/02/18 12/02/18 Range/Units 17:05 17:05 17:48 WBC (4.0-10.5) K/mm3 RBC (4.7-6.0) M/mm3 Hgb (13.5-18.0) gm/dL Hct (42.0-52.0) % MCHC (32-36) g/dl RDW (11.5-14.0) % Neutrophils % (Manual) 84 H (42-75) % Band Neuts % (Manual) (0-2.0) % Lymphocytes % (Manual) 12 L (20-51) % Neutrophils # (Manual) 18.2 H (1.3-6.0) K/mm3 Lymphocytes # (Manual) (1.5-3.5) k/mm3 pCO2 31.8 L (35.0-48.0) mmHg pO2 58.0 L (83.0-108.0) mmHg HCO3 20.5 L (21.0-28.0) mmol/L Base Excess -3.4 L (-2.0-3.0) mmol/L ABG O2 Sat (Measured) 91.2 L (94.0-98.0) % Anion Gap 14.3 H (6.8-13.8) mmol/L BUN 27 H (6-23) mg/dL Creatinine 2.08 H (0.4-1.4) mg/dL Est GFR (Non-Af Amer) 33 L (60-130) mL/min Random Glucose 172 H (70-110) mg/dL ALT (19-67) U/L B-Natriuretic Peptide 2255 H (5-350) pg/mL Albumin 3.3 L (3.4-5.0) gm/dl Crossmatch 12/03/18 12/03/18 12/03/18 Range/Units 05:05 05:05 13:23 WBC 28.4 H D (4.0-10.5) K/mm3 RBC 2.64 L (4.7-6.0) M/mm3 Hgb 7.6 L* (13.5-18.0) gm/dL Hct 24.3 L (42.0-52.0) % MCHC 31.3 L (32-36) g/dl RDW 16.4 H (11.5-14.0) % Neutrophils % (Manual) 91 H (42-75) % Band Neuts % (Manual) 5 H (0-2.0) % Lymphocytes % (Manual) 4 L (20-51) % Neutrophils # (Manual) 25.8 H (1.3-6.0) K/mm3 Lymphocytes # (Manual) 1.1 L (1.5-3.5) k/mm3 pCO2 (35.0-48.0) mmHg pO2 (83.0-108.0) mmHg HCO3 (21.0-28.0) mmol/L Base Excess (-2.0-3.0) mmol/L ABG O2 Sat (Measured) (94.0-98.0) % Anion Gap (6.8-13.8) mmol/L BUN 29 H (6-23) mg/dL Creatinine 2.23 H (0.4-1.4) mg/dL Est GFR (Non-Af Amer) 31 L (60-130) mL/min Random Glucose 166 H (70-110) mg/dL ALT 18 L (19-67) U/L B-Natriuretic Peptide (5-350) pg/mL Albumin 2.9 L (3.4-5.0) gm/dl Crossmatch See Detail - EKG/Xray Findings EKG: atrial fibrillation EKG read: Interp. by me XRAY: chest Interpretation: Reviewed by me - Exam Constitutional: Present: Alert, Oriented x3, Cooperative, Well developed, Well nourished, Mild distress ENT Exam: Present: normal ENT inspection, hearing grossly normal, pharynx normal, TMs normal Neck: Present: non-tender, full range of motion, supple Breasts: Present: Exam deferred Respiratory: Present: chest non-tender, rhonchi, stridor, wheezing, expiration (prolonged) Cardiovascular/Chest: Present: normal peripheral pulses, no chest tenderness, no edema, no JVD, no murmur, irregularly irregular Abdomen: Present: Normal bowel sounds, soft, nontender, nondistended, no rebound tenderness, no hepatospenomegaly /Rectal: Present: Exam deferred Extremity: Present: normal range of motion, non-tender, normal inspection Skin Exam: Present: normal color, warm/dry, no cyanosis Lymphatic: Present: no adenopathy Neurologic: 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 Discontinue IV steroids 2. Type and cross for 2 units of packed red blood cells. This patient's hemoglobin is 7.6 g down from 9.1. He is symptomatic with his anemia with increased shortness of breath and labored breathing. 3. Recheck CBC, CMP tomorrow 4. Recheck chest x-ray day after tomorrow. - Problems/Diagnosis (1) Renal insufficiency Problem: Chronic (2) Pneumonia Problem: Acute Qualifiers: Pneumonia type: due to other aerobic Gram-negative bacteria Laterality: right Lung location: middle lobe of lung Qualified Code(s): J15.6 - Pneumonia due to other Gram-negative bacteria (3) Atrial fibrillation with slow ventricular response Problem: Suspected (4) Anemia Problem: Chronic Qualifiers: Anemia type: due to chronic kidney disease Chronic kidney disease stage: stage 3 (moderate) Qualified Code(s): N18.3 - Chronic kidney disease, stage 3 (moderate); D63.1 - Anemia in chronic kidney disease
[2018-12-03] MEDS: LEVOFLOXACIN IN DEXTROSE 5 % 500 MG/100 ML BAG IV SCH (18:24)
[2018-12-03] MEDS: ROSUVASTATIN CALCIUM 20 MG TABLET PO SCH (20:13)
[2018-12-03] MEDS: TAMSULOSIN HCL 0.4 MG CAP.SR.24H PO SCH (20:14)
[2018-12-03] MEDS: METOPROLOL TARTRATE 25 MG TABLET PO SCH (20:14)
[2018-12-04] MEDS: ONDANSETRON HCL/PF 2 MG/ML VIAL IV PRN ×2 (00:20→08:28)
[2018-12-04] MEDS: ALBUTEROL SULFATE/IPRATROPIUM 3 ML NEBU IH PRN (04:38)
[2018-12-04 05:25] LABS: Hemoglobin 9.3 gm/dL (13.5-18.0); Mean Corpuscular Hemoglobin 28.5 pg (27-31); Mean Platelet Volume 9.9 fl (8-11.3); Platelet Count 298 K/mm3 (150-450); Red Blood Count 3.26 M/mm3 (4.7-6.0); Red Cell Distribution Width 15.9 % (11.5-14.0); White Blood Count 24.8 K/mm3 (4.0-10.5)
[2018-12-04 05:33] LABS: Total Cells Counted 100
[2018-12-04 05:46] LABS: Albumin * 2.9 gm/dl (3.4-5.0); BUN/Creatinine Ratio 16.8 (9.0-21.6); Bilirubin, Total 0.6 mg/dL (0.0-1.1); Ca. Corrected For Albumin 9.6 mg/dL (8.4-10.2); Carbon Dioxide 25.8 mmol/L (24-32.6); Potassium 3.8 mmol/L (3.4-4.6); Total Protein 6.5 gm/dL (6.2-8.2)
[2018-12-04 06:02] LABS: Atypical (Reactive) Lymph 1 % (0-2); Immature Granulocyte 1 (0-1); Lymphocyte 2 % (20-51); Neutrophil 96 % (42-75); Neutrophil # 23.8 K/mm3 (1.3-6.0)
[2018-12-04 06:03] LABS: Platelet Estimate Normal (NORMAL); RBC Morphology Normal (NORMAL)
[2018-12-04] MEDS: ALBUTEROL SULFATE/IPRATROPIUM 3 ML NEBU IH SCH ×4 (07:06→18:03)
[2018-12-04] MEDS ORDERED: NORMAL SALINE 1,000 ML IV PRN (08:01)
[2018-12-04] MEDS ORDERED: ONDANSETRON 8 MG TAB.RAPDIS PO PRN (08:22)
[2018-12-04] MEDS ORDERED: LORazepam 0.5 MG TABLET PO PRN (08:26)
[2018-12-04] MEDS ORDERED: PROCHLORPERAZINE EDISYLATE 5 MG/ML VIAL IV ONE (10:36)
[2018-12-04] MEDS ORDERED: ENALAPRILAT DIHYDRATE 1.25 MG/ML VIAL IV ONE (10:42)
[2018-12-04] MEDS ORDERED: ENOXAPARIN SODIUM 40 MG/0.4 ML SYRG SC SCH (13:00)
[2018-12-04] MEDS: APIXABAN 5 MG TABLET PO SCH ×2 (13:06→21:04)
[2018-12-04] MEDS: METOPROLOL TARTRATE 25 MG TABLET PO SCH ×2 (13:06→21:04)
[2018-12-04] MEDS: PANTOPRAZOLE SODIUM 20 MG TABLET.DR PO SCH (13:07)
[2018-12-04] MEDS: CARBIDOPA/LEVODOPA 25/100 1 TAB TABLET PO SCH ×2 (13:13→21:05)
[2018-12-04] MEDS: CHOLECALCIFEROL 1,000 UNIT CAPSULE PO SCH (13:16)
[2018-12-04] MEDS: FINASTERIDE 5 MG TABLET PO SCH (13:16)
[2018-12-04] MEDS: ASPIRIN 81 MG TABLET.DR PO SCH (13:16)
[2018-12-04] MEDS: SERTRALINE HCL 100 MG TABLET PO SCH (13:16)
[2018-12-04] MEDS: CYANOCOBALAMIN 1,000 MCG TABLET PO SCH (13:16)
[2018-12-04] MEDS: ALLOPURINOL 100 MG TABLET PO SCH (13:17)
[2018-12-04] MEDS: AMIODARONE HCL 200 MG TABLET PO SCH (13:17)
[2018-12-04] MEDS: FUROSEMIDE 80 MG TABLET PO SCH ×3 (15:11→21:12)
[2018-12-04] MEDS: LEVOFLOXACIN IN DEXTROSE 5 % 500 MG/100 ML BAG IV SCH (19:04)
--- NOTE | 2018-12-04 20:24 | PN ---
Subjective - Date and Time Seen Date: 12/04/18 Time: 08:00 Subjective Narrative: Mr. Lee is vomiting when I entered the room this morning. He is nauseous and does not want to try to eat anything or to take his morning medicines. Because he has not had his morning medicines his blood pressure has spiked to 196/106. He also has an increased tremor that appears to be parkinsonian. He also has a nervous shake aside from the tremor. I will treat the Parkinson's tremor of the Sinemet 10/251 twice daily and I will treat the anxiety shakes with alprazolam. I will reassess through the day or this evening and adjust dosing accordingly. He is coughing some and it is not productive just yet. Objective - Review of Systems Generalized/Overall Review: Reports: No Symptoms Reported, Weakness, Fatigue. Denies: Chills, Fever EENTM: Reports: No Symptoms Reported Respiratory: Reports: No Symptoms Reported, Cough, Shortness of Breath Cardiac: Reports: No Symptoms Reported, Chest Pain Abdominal: Reports: Nausea, Vomiting Genitourinary Symptoms: Reports: No Symptoms Reported Musculoskeletal Complaints: Reports: No Symptoms Reported Neurological: Reports: Tremors, Weakness Skin: Reports: No Symptoms Reported Endocrine: Reports: No Symptoms Reported - Vitals Vitals: Last Vital Signs Temp 36.8 C 12/04/18 20:05 Pulse 98 12/04/18 20:05 Resp 22 H 12/04/18 20:05 BP 141/81 12/04/18 20:05 Pulse Ox 93 12/04/18 20:05 - Abnormal Lab Findings Abnormal Lab Findings: Abnormal Lab Results 12/03/18 12/04/18 12/04/18 Range/Units 13:23 05:20 05:20 WBC 24.8 H (4.0-10.5) K/mm3 RBC 3.26 L (4.7-6.0) M/mm3 Hgb 9.3 L (13.5-18.0) gm/dL Hct 30.0 L (42.0-52.0) % MCHC 31.0 L (32-36) g/dl RDW 15.9 H (11.5-14.0) % Neutrophils % (Manual) 96 H (42-75) % Lymphocytes % (Manual) 2 L (20-51) % Neutrophils # (Manual) 23.8 H (1.3-6.0) K/mm3 Lymphocytes # (Manual) 0.5 L (1.5-3.5) k/mm3 Anion Gap 14.0 H (6.8-13.8) mmol/L BUN 40 H (6-23) mg/dL Creatinine 2.38 H (0.4-1.4) mg/dL Est GFR (Non-Af Amer) 29 L (60-130) mL/min Random Glucose 165 H (70-110) mg/dL Albumin 2.9 L (3.4-5.0) gm/dl Crossmatch See Detail - EKG/Xray Findings EKG: NSR - Exam Constitutional: Present: Alert, Oriented x3, Cooperative, Well developed, Well nourished, Mild distress ENT Exam: Present: normal ENT inspection, hearing grossly normal, pharynx normal, TMs normal Neck: Present: non-tender, full range of motion, supple, normal inspection Respiratory: Present: chest non-tender, rhonchi, wheezing, expiration (prolonged) Cardiovascular/Chest: Present: normal peripheral pulses, irregularly irregular Abdomen: Present: Normal bowel sounds, soft, nontender, nondistended, no rebound tenderness, no hepatospenomegaly, no masses /Rectal: Present: Exam deferred, External genitalia normal Extremity: Present: normal range of motion, non-tender, normal inspection, no pedal edema, no calf tenderness, normal capillary refill Skin Exam: Present: normal color, warm/dry, no cyanosis Lymphatic: Present: no adenopathy 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 Increase ondansetron to 8 mg and this dissolvable wafer and DC the IV Zofran. 2. Enalapril 1.25 mg IV for blood pressure until he can take his oral medicines 3. Add Sinemet 10/251 p.o. twice daily 4. Add alprazolam 0.5 mg every 6 hours as needed anxiety 5. Chest x-ray tomorrow morning 6. Repeat morning lab - Problems/Diagnosis (1) Pneumonia Problem: Acute Qualifiers: Pneumonia type: due to other aerobic Gram-negative bacteria Laterality: right Lung location: middle lobe of lung Qualified Code(s): J15.6 - Pneumonia due to other Gram-negative bacteria (2) COPD exacerbation Problem: Acute (3) Renal insufficiency Problem: Chronic (4) Atrial fibrillation with slow ventricular response Problem: Suspected (5) Anemia Problem: Chronic Qualifiers: Anemia type: due to chronic kidney disease Chronic kidney disease stage: stage 3 (moderate) Qualified Code(s): N18.3 - Chronic kidney disease, stage 3 (moderate); D63.1 - Anemia in chronic kidney disease (6) Nausea and vomiting Problem: Acute Qualifiers: Vomiting type: bilious vomiting Qualified Code(s): R11.14 - Bilious vomiting (7) Tremor Problem: Acute (8) Anxiety Problem: Acute
[2018-12-04] MEDS ORDERED: LORazepam 1 MG TABLET PO PRN (20:26)
[2018-12-04] MEDS: TAMSULOSIN HCL 0.4 MG CAP.SR.24H PO SCH (21:03)
[2018-12-04] MEDS: ROSUVASTATIN CALCIUM 20 MG TABLET PO SCH (21:04)
[2018-12-05] MEDS: ALBUTEROL SULFATE/IPRATROPIUM 3 ML NEBU IH SCH ×3 (06:02→15:21)
[2018-12-05 08:14] LABS: Hemoglobin 9.9 gm/dL (13.5-18.0); Mean Cell Volume 93.3 fl (78-100); Mean Corpuscular Hemoglobin 28.9 pg (27-31); Mean Corpuscular Hgb Conc 30.9 g/dl (32-36); Neutrophil % 88.8 % (42-75.0); Platelet Count 332 K/mm3 (150-450); Red Blood Count 3.43 M/mm3 (4.7-6.0); Red Cell Distribution Width 16.1 % (11.5-14.0)
[2018-12-05 08:23] LABS: Albumin * 2.9 gm/dl (3.4-5.0); Anion Gap 13.6 mmol/L (6.8-13.8); BUN/Creatinine Ratio 15.6 (9.0-21.6); Bilirubin, Total 0.6 mg/dL (0.0-1.1); Ca. Corrected For Albumin 9.4 mg/dL (8.4-10.2); Calcium * 8.8 mg/dL (7.9-10.9); Potassium 3.6 mmol/L (3.4-4.6); Total Protein 6.5 gm/dL (6.2-8.2)
[2018-12-05] MEDS: CHOLECALCIFEROL 1,000 UNIT CAPSULE PO SCH (08:54)
[2018-12-05] MEDS: PANTOPRAZOLE SODIUM 20 MG TABLET.DR PO SCH (08:54)
[2018-12-05] MEDS: METOPROLOL TARTRATE 25 MG TABLET PO SCH (08:54)
[2018-12-05] MEDS: AMIODARONE HCL 200 MG TABLET PO SCH (08:54)
[2018-12-05] MEDS: CARBIDOPA/LEVODOPA 25/100 1 TAB TABLET PO SCH (08:55)
[2018-12-05] MEDS: ALLOPURINOL 100 MG TABLET PO SCH (08:55)
[2018-12-05] MEDS: APIXABAN 5 MG TABLET PO SCH (08:55)
[2018-12-05] MEDS: SERTRALINE HCL 100 MG TABLET PO SCH (08:55)
[2018-12-05] MEDS: CYANOCOBALAMIN 1,000 MCG TABLET PO SCH (08:55)
[2018-12-05] MEDS: FINASTERIDE 5 MG TABLET PO SCH (08:55)
[2018-12-05] MEDS: ASPIRIN 81 MG TABLET.DR PO SCH (08:55)
[2018-12-05] MEDS ORDERED: LISINOPRIL 10 MG TABLET PO SCH (09:00)
[2018-12-05] MEDS ORDERED: FLUTICASONE PROPION/SALMETEROL 14 PUFF DISK.W.DEV IH SCH (09:00)
[2018-12-05] MEDS ORDERED: amLODIPine BESYLATE 10 MG TABLET PO SCH (09:00)
--- NOTE | 2018-12-05 14:20 | DS ---
(1) Pneumonia Problem: Acute Qualifiers: Pneumonia type: due to other aerobic Gram-negative bacteria Laterality: right Lung location: middle lobe of lung Qualified Code(s): J15.6 - Pneumonia due to other Gram-negative bacteria (2) COPD exacerbation Problem: Acute (3) Renal insufficiency Problem: Chronic (4) Atrial fibrillation with slow ventricular response Problem: Suspected (5) Anemia Problem: Chronic Qualifiers: Anemia type: due to chronic kidney disease Chronic kidney disease stage: stage 3 (moderate) Qualified Code(s): N18.3 - Chronic kidney disease, stage 3 (moderate); D63.1 - Anemia in chronic kidney disease (6) Nausea and vomiting Problem: Acute Qualifiers: Vomiting type: bilious vomiting Qualified Code(s): R11.14 - Bilious vomiting (7) Tremor Problem: Acute (8) Anxiety Problem: Acute Results and Findings: Pending Mircobiology Results 12/02/18 17:32 Blood Blood Culture - Preliminary NO GROWTH AFTER 48 HOURS 12/02/18 17:05 Blood Blood Culture - Preliminary NO GROWTH AFTER 48 HOURS Lab Pending Results 12/02/18 17:05: WBC 21.7 H, RBC 2.93 L, Hgb 8.4 L, Hct 27.3 L, MCV 93.2, MCH 28.7, MCHC 30.8 L, RDW 16.1 H, Plt Count 291, MPV 9.7, Neutrophils % (Manual) 84 H, Band Neuts % (Manual) 1, Lymphocytes % (Manual) 12 L, Monocytes % (Manual) 3, Neutrophils # (Manual) 18.2 H, Lymphocytes # (Manual) 2.6, Monocytes # (Manual) 0.7, Platelet Estimate Normal, Anisocytosis 1+ 12/02/18 17:05: Sodium 141, Plasma Sodium 142, Potassium 4.3, Chloride 102, Carbon Dioxide 29.0, Anion Gap 14.3 H, BUN 27 H, Creatinine 2.08 H, Est GFR (Non-Af Amer) 33 L, BUN/Creatinine Ratio 13.0, Random Glucose 172 H, Calcium 8.9, Calcium Adj for Albumin 9.1, Total Bilirubin 0.7, AST 21, ALT 20, Alkaline Phosphatase 124, Troponin I 0.017, B-Natriuretic Peptide 2255 H, Total Protein 6.9, Albumin 3.3 L 12/02/18 17:48: pCO2 31.8 L, pO2 58.0 L, HCO3 20.5 L, Total CO2 21.5, Base Excess -3.4 L, ABG pH 7.43, ABG O2 Sat (Measured) 91.2 L 12/03/18 05:05: WBC 28.4 H D, RBC 2.64 L, Hgb 7.6 L*, Hct 24.3 L, MCV 92.0, MCH 28.8, MCHC 31.3 L, RDW 16.4 H, Plt Count 270, MPV 10.1, Neutrophils % (Manual) 91 H, Band Neuts % (Manual) 5 H, Lymphocytes % (Manual) 4 L, Neutrophils # (Manual) 25.8 H, Lymphocytes # (Manual) 1.1 L, Platelet Estimate Normal, RBC Morphology Normal 12/03/18 05:05: Sodium 140, Plasma Sodium 141, Potassium 3.4 D, Chloride 102, Carbon Dioxide 27.8, Anion Gap 13.6, BUN 29 H, Creatinine 2.23 H, Est GFR (Non- Af Amer) 31 L, BUN/Creatinine Ratio 13.0, Random Glucose 166 H, Calcium 8.9, Calcium Adj for Albumin 9.5, Total Bilirubin 0.6, AST 17, ALT 18 L, Alkaline Phosphatase 107, Total Protein 6.5, Albumin 2.9 L 12/03/18 05:05: Mean Blood Glucose 114, Hemoglobin A1c 6.0 12/03/18 13:23: Blood Type O Positive, Antibody Screen Negative, Crossmatch See Detail 12/04/18 05:20: WBC 24.8 H, RBC 3.26 L, Hgb 9.3 L, Hct 30.0 L, MCV 92.0, MCH 28.5, MCHC 31.0 L, RDW 15.9 H, Plt Count 298, MPV 9.9, Neutrophils % (Manual) 96 H, Lymphocytes % (Manual) 2 L, Immature Granulocytes 1, Neutrophils # (Manual) 23.8 H, Lymphocytes # (Manual) 0.5 L, Atypic/Reactive Lymphs 1, Platelet Estimate Normal, RBC Morphology Normal 12/04/18 05:20: Sodium 139, Plasma Sodium 140, Potassium 3.8, Chloride 103, Carbon Dioxide 25.8, Anion Gap 14.0 H, BUN 40 H, Creatinine 2.38 H, Est GFR (Non-Af Amer) 29 L, BUN/Creatinine Ratio 16.8, Random Glucose 165 H, Calcium 9.0, Calcium Adj for Albumin 9.6, Total Bilirubin 0.6, AST 30, ALT 20, Alkaline Phosphatase 103, Total Protein 6.5, Albumin 2.9 L 12/05/18 08:05: WBC 18.0 H D, RBC 3.43 L, Hgb 9.9 L, Hct 32.0 L, MCV 93.3, MCH 28.9, MCHC 30.9 L, RDW 16.1 H, Plt Count 332, MPV 10.0, Immature Gran % (Auto) 0.70 H, Immature Gran # (Auto) 0.12 H, Neutrophils % 88.8 H, Lymphocytes % 5.1 L, Monocytes % 5.2, Eosinophils % 0.1, Basophils % 0.1, Nucleated RBC % 0.0, Neutrophils # 16.0 H, Lymphocytes # 0.92 L, Monocytes # 0.9, Eosinophils # 0.0, Absolute Basophils 0.0 12/05/18 08:05: Sodium 141, Plasma Sodium 142, Potassium 3.6, Chloride 101, Carbon Dioxide 30.0, Anion Gap 13.6, BUN 36 H, Creatinine 2.31 H, Est GFR (Non- Af Amer) 30 L, BUN/Creatinine Ratio 15.6, Random Glucose 167 H, Calcium 8.8, Calcium Adj for Albumin 9.4, Total Bilirubin 0.6, AST 37, ALT 9 L, Alkaline Phosphatase 101, Total Protein 6.5, Albumin 2.9 L Disposition: Home self-care Condition: Stable Referrals: Krystian Galvan DO [Primary Care Provider] - Additional Patient Instructions (free text): Complete Home Medications List: Complete Home Medication List: Aspirin [Aspirin Enteric Coated] 81 mg PO DAILY 02/05/13 allopurinol 100 mg tablet 100 mg PO DAILY #90 tab 11/23/17 atorvastatin 40 mg tablet 40 mg PO HS #90 tab 11/23/17 finasteride 5 mg tablet 5 mg PO DAILY #90 tab 11/23/17 nitroglycerin 0.4 mg sublingual tablet 0.4 mg SL Q5MIN PRN #25 tab 11/23/17 omeprazole 20 mg tablet,delayed release 20 mg PO DAILY #90 tab 11/23/17 polyethylene glycol 3350 17 gram/dose oral powder 17 g PO DAILY PRN #510 g 11/23/17 sertraline 100 mg tablet 100 mg PO DAILY #90 tab 06/18/18 albuterol sulfate HFA 90 mcg/actuation aerosol inhaler 2 puff IH Q4H PRN #18 g 06/26/18 Cholecalciferol (Vitamin D3) [Vitamin D3] 2,000 unit PO DAILY 08/13/18 Cyanocobalamin (Vitamin B-12) [Vitamin B12] 2,500 mcg PO DAILY 08/13/18 amiodarone 200 mg tablet 400 mg PO DAILY #60 tab 10/02/18 apixaban 5 mg tablet 5 mg PO BID #60 tab 10/02/18 ipratropium-albuterol 0.5 mg-3 mg(2.5 mg base)/3 mL nebulization soln 3 ml IH QID #180 ml 10/04/18 metoprolol tartrate 50 mg tablet 25 mg PO BID #30 tab 11/15/18 Furosemide [Lasix] 80 mg PO 1400 12/02/18 Tamsulosin HCl [Flomax] 0.4 mg PO HS 12/02/18 Amb Orders for Discharge: CBC Time Frame: 2 Weeks, Location: Laboratory Comprehensive Metabolic Panel Time Frame: 2 Weeks, Location: Laboratory
--- NOTE | 2018-12-05 14:52 | DS ---
(1) Pneumonia Problem: Acute Qualifiers: Pneumonia type: due to other aerobic Gram-negative bacteria Laterality: right Lung location: middle lobe of lung Qualified Code(s): J15.6 - Pneumonia due to other Gram-negative bacteria (2) COPD exacerbation Problem: Acute (3) Renal insufficiency Problem: Chronic (4) Atrial fibrillation with slow ventricular response Problem: Suspected (5) Anemia Problem: Chronic Qualifiers: Anemia type: due to chronic kidney disease Chronic kidney disease stage: stage 3 (moderate) Qualified Code(s): N18.3 - Chronic kidney disease, stage 3 (moderate); D63.1 - Anemia in chronic kidney disease (6) Nausea and vomiting Problem: Acute Qualifiers: Vomiting type: bilious vomiting Qualified Code(s): R11.14 - Bilious vomiting (7) Tremor Problem: Acute (8) Anxiety Problem: Acute Date of Discharge:: 12/05/18 Description of Stay: Salvador Lee is a 73-year-old male who presented to the hospital with shortness of breath cough fever chills and fatigue. He was seen in the emergency room diagnosed with pneumonia and COPD with acute exacerbation of chronic bronchitis. He was started on IV antibiotics and respiratory therapy. He has improved gradually each day. Yesterday he had a lot of nausea and some vomiting. That stopped about 7:00 last night for some reason. Because of the nausea vomiting is unknown. Respiratory erwin he is breathing easier but still wheezy and still coughing. He has not had any fever or chills since admission. Is also developed a tremor. He has had a tremor before but is much more pronounced and I think it is because of albuterol breathing treatments. He will have to continue those for a while but I suspect that the tremor will lighten up after he gets off the albuterol. He is showing some signs of Parkinson's tremor and I have started him on Sinemet for that. He is ambulatory with assistance and is capable of going home. Procedures Performed: none Results and Findings: Pending Mircobiology Results 12/02/18 17:32 Blood Blood Culture - Preliminary NO GROWTH AFTER 48 HOURS 12/02/18 17:05 Blood Blood Culture - Preliminary NO GROWTH AFTER 48 HOURS Lab Pending Results 12/02/18 17:05: WBC 21.7 H, RBC 2.93 L, Hgb 8.4 L, Hct 27.3 L, MCV 93.2, MCH 28.7, MCHC 30.8 L, RDW 16.1 H, Plt Count 291, MPV 9.7, Neutrophils % (Manual) 84 H, Band Neuts % (Manual) 1, Lymphocytes % (Manual) 12 L, Monocytes % (Manual) 3, Neutrophils # (Manual) 18.2 H, Lymphocytes # (Manual) 2.6, Monocytes # (Manual) 0.7, Platelet Estimate Normal, Anisocytosis 1+ 12/02/18 17:05: Sodium 141, Plasma Sodium 142, Potassium 4.3, Chloride 102, Carbon Dioxide 29.0, Anion Gap 14.3 H, BUN 27 H, Creatinine 2.08 H, Est GFR (Non-Af Amer) 33 L, BUN/Creatinine Ratio 13.0, Random Glucose 172 H, Calcium 8.9, Calcium Adj for Albumin 9.1, Total Bilirubin 0.7, AST 21, ALT 20, Alkaline Phosphatase 124, Troponin I 0.017, B-Natriuretic Peptide 2255 H, Total Protein 6.9, Albumin 3.3 L 12/02/18 17:48: pCO2 31.8 L, pO2 58.0 L, HCO3 20.5 L, Total CO2 21.5, Base Excess -3.4 L, ABG pH 7.43, ABG O2 Sat (Measured) 91.2 L 12/03/18 05:05: WBC 28.4 H D, RBC 2.64 L, Hgb 7.6 L*, Hct 24.3 L, MCV 92.0, MCH 28.8, MCHC 31.3 L, RDW 16.4 H, Plt Count 270, MPV 10.1, Neutrophils % (Manual) 91 H, Band Neuts % (Manual) 5 H, Lymphocytes % (Manual) 4 L, Neutrophils # (Manu al) 25.8 H, Lymphocytes # (Manual) 1.1 L, Platelet Estimate Normal, RBC Morphology Normal 12/03/18 05:05: Sodium 140, Plasma Sodium 141, Potassium 3.4 D, Chloride 102, Carbon Dioxide 27.8, Anion Gap 13.6, BUN 29 H, Creatinine 2.23 H, Est GFR (Non- Af Amer) 31 L, BUN/Creatinine Ratio 13.0, Random Glucose 166 H, Calcium 8.9, Calcium Adj for Albumin 9.5, Total Bilirubin 0.6, AST 17, ALT 18 L, Alkaline Phosphatase 107, Total Protein 6.5, Albumin 2.9 L 12/03/18 05:05: Mean Blood Glucose 114, Hemoglobin A1c 6.0 12/03/18 13:23: Blood Type O Positive, Antibody Screen Negative, Crossmatch See Detail 12/04/18 05:20: WBC 24.8 H, RBC 3.26 L, Hgb 9.3 L, Hct 30.0 L, MCV 92.0, MCH 28.5, MCHC 31.0 L, RDW 15.9 H, Plt Count 298, MPV 9.9, Neutrophils % (Manual) 96 H, Lymphocytes % (Manual) 2 L, Immature Granulocytes 1, Neutrophils # (Manual) 23.8 H, Lymphocytes # (Manual) 0.5 L, Atypic/Reactive Lymphs 1, Platelet Estimate Normal, RBC Morphology Normal 12/04/18 05:20: Sodium 139, Plasma Sodium 140, Potassium 3.8, Chloride 103, Carbon Dioxide 25.8, Anion Gap 14.0 H, BUN 40 H, Creatinine 2.38 H, Est GFR (Non-Af Amer) 29 L, BUN/Creatinine Ratio 16.8, Random Glucose 165 H, Calcium 9.0, Calcium Adj for Albumin 9.6, Total Bilirubin 0.6, AST 30, ALT 20, Alkaline Phosphatase 103, Total Protein 6.5, Albumin 2.9 L 12/05/18 08:05: WBC 18.0 H D, RBC 3.43 L, Hgb 9.9 L, Hct 32.0 L, MCV 93.3, MCH 28.9, MCHC 30.9 L, RDW 16.1 H, Plt Count 332, MPV 10.0, Immature Gran % (Auto) 0.70 H, Immature Gran # (Auto) 0.12 H, Neutrophils % 88.8 H, Lymphocytes % 5.1 L, Monocytes % 5.2, Eosinophils % 0.1, Basophils % 0.1, Nucleated RBC % 0.0, Neutrophils # 16.0 H, Lymphocytes # 0.92 L, Monocytes # 0.9, Eosinophils # 0.0, Absolute Basophils 0.0 12/05/18 08:05: Sodium 141, Plasma Sodium 142, Potassium 3.6, Chloride 101, Carbon Dioxide 30.0, Anion Gap 13.6, BUN 36 H, Creatinine 2.31 H, Est GFR (Non- Af Amer) 30 L, BUN/Creatinine Ratio 15.6, Random Glucose 167 H, Calcium 8.8, Calcium Adj for Albumin 9.4, Total Bilirubin 0.6, AST 37, ALT 9 L, Alkaline Phosphatase 101, Total Protein 6.5, Albumin 2.9 L Discharge Location: Home Disposition: Home self-care Condition: Stable Face to Face Encounter completed per [facility] Guidelines: No Discharge Activity: Activity as tolerated Discharge Diet: General/regular food Referrals: Krystian Galvan DO [Primary Care Provider] - Additional Patient Instructions (free text): Keep your appointment with Dr. Teddy Pan in [place]. Complete Home Medications List: Complete Home Medication List: Aspirin [Aspirin Enteric Coated] 81 mg PO DAILY 02/05/13 allopurinol 100 mg tablet 100 mg PO DAILY #90 tab 11/23/17 atorvastatin 40 mg tablet 40 mg PO HS #90 tab 11/23/17 finasteride 5 mg tablet 5 mg PO DAILY #90 tab 11/23/17 nitroglycerin 0.4 mg sublingual tablet 0.4 mg SL Q5MIN PRN #25 tab 11/23/17 omeprazole 20 mg tablet,delayed release 20 mg PO DAILY #90 tab 11/23/17 polyethylene glycol 3350 17 gram/dose oral powder 17 g PO DAILY PRN #510 g 11/23/17 sertraline 100 mg tablet 100 mg PO DAILY #90 tab 06/18/18 albuterol sulfate HFA 90 mcg/actuation aerosol inhaler 2 puff IH Q4H PRN #18 g 06/26/18 Cholecalciferol (Vitamin D3) [Vitamin D3] 2,000 unit PO DAILY 08/13/18 Cyanocobalamin (Vitamin B-12) [Vitamin B12] 2,500 mcg PO DAILY 08/13/18 amiodarone 200 mg tablet 400 mg PO DAILY #60 tab 10/02/18 apixaban 5 mg tablet 5 mg PO BID #60 tab 10/02/18 metoprolol tartrate 50 mg tablet 25 mg PO BID #30 tab 11/15/18 Furosemide [Lasix] 80 mg PO 1400 12/02/18 Tamsulosin HCl [Flomax] 0.4 mg PO HS 12/02/18 Carbidopa/Levodopa 25/100 [Sinemet 25/100] 1 tab PO BID #60 tab 08/29/19 Fluticasone Propion/Salmeterol [Advair 500-50 Diskus] 1 puff INHALATION BID #1 disk.[email or web address] 12/05/18 Ipratropium/Albuterol Sulfate [Iprat-Albut 0.5-3(2.5) mg/3 ml] 3 ml INHALATION QID #180 ml 12/05/18 LORazepam [Ativan] 1 mg PO Q8H PRN #60 tab 12/05/18 Lisinopril [Zestril] 10 mg PO DAILY #30 tab 12/05/18 Ondansetron [Zofran Odt] 8 mg PO Q6H PRN #10 tab.rapdis 12/05/18 amLODIPine BESYLATE [Norvasc] 10 mg PO DAILY #30 tab 12/05/18 Amb Orders for Discharge: CBC Time Frame: 2 Weeks, Location: Laboratory Comprehensive Metabolic Panel Time Frame: 2 Weeks, Location: Laboratory
[2018-12-05 16:14] VITALS: BP 100/41
== END 2018-12-05 16:05 | disposition home or self-care (01) | DRG 178 ==
LOC: ER 16:41 → MS 16:41 → OBSVTOIN 18:17 → MS 18:52
PROVIDERS: ADMIT Internal Medicine; ATTEND Family Medicine
DX: D63.8 Anemia in other chronic diseases classified elsewhere; I13.10 Hypertensive heart and chronic kidney disease without heart failure, with stage 1 through stage 4 chronic kidney disease, or unspecified chronic kidney disease; I25.10 Atherosclerotic heart disease of native coronary artery without angina pectoris; N18.3 Chronic kidney disease, stage 3 (moderate); E78.5 Hyperlipidemia, unspecified; J44.0 Chronic obstructive pulmonary disease with (acute) lower respiratory infection; R60.0 Localized edema; R11.14 Bilious vomiting; N40.0 Benign prostatic hyperplasia without lower urinary tract symptoms; Z87.891 Personal history of nicotine dependence; F41.9 Anxiety disorder, unspecified; I48.1 Persistent atrial fibrillation; J15.6 Pneumonia due to other Gram-negative bacteria; G20 Parkinson's disease
CPT/HCPCS: 36415; 36600; 71010; 71045; 80053; 82803; 83036; 83519; 83880; 84484; 85007; 85025; 86850; 87040; 93005; 94640; 94664; 94760; 96374; 99285; J2405; P9016